=== PATIENT | female | born 1950 ===

== ENCOUNTER 2016-11-06 01:36 | Emergency (ER) | payer MEDICARE, MEDICAID ==
[2016-11-06 01:36] VITALS: PULSE 83
[2016-11-06 01:42] VITALS: BMI 21.7
[2016-11-06] MEDS ORDERED: Morphine 2 mg/ml ISec IVP STA (01:51)
--- NOTE | 2016-11-06 01:52 | ED PDOC ---
Arrival/HPI - General Time Seen by Provider: 11/06/16 01:42 Historian: Patient, Spouse - History of Present Illness Narrative History of Present Illness (Text): 11/06/16 01:48 Heather Chowdary is a 66 year old female, whose past medical history includes CABG, CAD with stents, diabetes, and hypertension, who presents to the Emergency department complaining of intermittent chest pain for the past 2-3 days, worsening tonight. Patient reports associated epigastric pain, cough, nausea, and 2 episodes of non-bloody vomiting. Patient also notes a mild headache. Patient denies any fever, chills, shortness of breath, diarrhea, urinary symptoms, back pain, neck pain, dizziness, vision changes, focal neurological deficits, or any other complaints. PMD: Dr. Alesha Torres Counseling Specialist: Dr. Guevara Time/Duration: < week (2-3 days) Symptom Course: Intermittent, Worsening Activities at Onset: Rest, Light Context: Home Past Medical History - Provider Review Nursing Documentation Reviewed: Yes - Infectious Disease Hx of Infectious Diseases: None - Tetanus Immunization Tetanus Immunization: Unknown - Cardiac Hx Cardiac Disorders: No Hx Pacemaker: No - Pulmonary Hx Respiratory Disorders: No Hx Bronchitis: No (pt denies) Hx Pneumonia: No (pt denies) - Neurological Hx Neurological Disorder: No Hx Paralysis: No - HEENT Hx HEENT Disorder: Yes (reading glasses) Hx Cataracts: Yes (sx r eye 11/2012) - Renal Hx Renal Disorder: No - Endocrine/Metabolic Hx Endocrine Disorders: Yes Hx Diabetes Mellitus Type 1: Yes Hx Diabetes Mellitus Type 2: Yes - Hematological/Oncological Hx Blood Disorders: No Hx Blood Transfusions: No Hx Blood Transfusion Reaction: No - Integumentary Hx Dermatological Disorder: No - Musculoskeletal/Rheumatological Hx Musculoskeletal Disorders: No - Gastrointestinal Hx Gastrointestinal Disorders: No - Genitourinary/Gynecological Hx Genitourinary Disorders: No (URINARY HESITANCY) - Psychiatric Hx Anxiety: Yes Hx Emotional Abuse: No Hx Physical Abuse: No Hx Substance Use: No - Surgical History Hx Cardiac Catheterization: Yes (02/20/14) Hx Coronary Artery Bypass Graft: Yes Hx Coronary Stent: Yes (2007 x2) Hx Open Heart Surgery: Yes - Anesthesia Hx Anesthesia: Yes Hx Anesthesia Reactions: No Hx Malignant Hyperthermia: No - Suicidal Assessment Feels Threatened In Home Enviroment: No Family/Social History - Physician Review Nursing Documentation Reviewed: Yes Family/Social History: Unknown Family HX Smoking Status: Former Smoker Hx Alcohol Use: No Hx Substance Use: No Hx Substance Use Treatment: No Allergies/Home Meds Allergies/Adverse Reactions: Allergies metoclopramide Allergy (Verified 01/24/16 13:53) SHORTNESS OF BREATH zolpidem tartrate [From Ambien] Adverse Reaction (Verified 11/06/16 01:42) anxiety Home Medications: Home Meds Medication Instructions Recorded Confirmed Aspirin [Aspir 81] 81 mg PO QAM 11/25/12 11/06/16 Clopidogrel Bisulfate [Clopidogrel] 75 mg PO QAM 11/25/12 11/06/16 Furosemide [Lasix] 40 mg PO QAM 03/13/15 11/06/16 Potassium Chloride [Klor-Con 10] 10 meq PO QAM 03/13/15 11/06/16 Carvedilol [Coreg] 12.5 mg PO QPM 11/17/15 11/06/16 Digoxin [Digitek] 125 mcg PO DAILY 11/17/15 11/06/16 Enalapril Maleate [Vasotec] 5 mg PO QAM 11/17/15 11/06/16 Glipizide [Glipizide Xl] 10 mg PO BID 11/17/15 11/06/16 Omeprazole [Prilosec] 40 mg PO QAM 11/17/15 11/06/16 Pravastatin Sodium [Pravachol] 40 mg PO QPM 11/17/15 11/06/16 Sitagliptin Phos/Metformin HCl 1 ter PO BID 11/17/15 11/06/16 [Janumet Xr 50-1,000 mg Tablet] Tramadol HCl [Ultram] 50 mg PO BID PRN 11/17/15 11/06/16 Gabapentin [Neurontin] 100 mg PO BID 01/24/16 11/06/16 Repaglinide 1 mg PO DAILY 11/06/16 11/06/16 Review of Systems - Physician Review All systems were reviewed & negative as marked: Yes - Review of Systems Constitutional: Normal. absent: Fevers Eyes: Normal ENT: Normal Respiratory: Cough. absent: SOB Cardiovascular: Chest Pain Gastrointestinal: Abdominal Pain, Nausea, Vomiting. absent: Diarrhea Genitourinary Female: Normal. absent: Dysuria, Frequency, Hematuria, Urine Output Changes Musculoskeletal: Normal. absent: Back Pain, Neck Pain Skin: Normal. absent: Rash Neurological: Headache. absent: Dizziness Endocrine: Normal Hemo/Lymphatic: Normal Psychiatric: Normal Physical Exam Vital Signs Reviewed: Yes Vital Signs Temp Pulse Pulse Resp BP BP Pulse Ox 11/06/16 02:39 97.7 F 11/06/16 02:21 85 17 133/72 99 11/06/16 02:05 87 133/72 11/06/16 01:42 92 H 18 154/94 H 100 Temperature: Afebrile Blood Pressure: Normal Pulse: Regular Respiratory Rate: Normal Appearance: Positive for: Well-Appearing, Non-Toxic, Comfortable Pain Distress: None Mental Status: Positive for: Alert and Oriented X 3 - Systems Exam Head: Present: Atraumatic, Normocephalic Pupils: Present: PERRL Extroacular Muscles: Present: EOMI Conjunctiva: Present: Normal Mouth: Present: Moist Mucous Membranes Neck: Present: Normal Range of Motion Respiratory/Chest: Present: Clear to Auscultation, Good Air Exchange. No: Respiratory Distress, Accessory Muscle Use Cardiovascular: Present: Regular Rate and Rhythm, Normal S1, S2. No: Murmurs Abdomen: Present: Normal Bowel Sounds. No: Tenderness, Distention, Peritoneal Signs Back: Present: Normal Inspection Upper Extremity: Present: Normal Inspection. No: Cyanosis, Edema Lower Extremity: Present: Normal Inspection. No: Edema Neurological: Present: GCS=15, CN II-XII Intact, Speech Normal Skin: Present: Warm, Dry, Normal Color. No: Rashes Psychiatric: Present: Alert, Oriented x 3, Normal Insight, Normal Concentration Medical Decision Making ED Course and Treatment: 11/06/16 01:48 Impression: 66 year old female complaining of chest pain, epigastric pain, nausea, vomiting , and cough. Plan: -- EKG -- Chest X-ray -- Labs, cardiac enzymes, amylase, lipase, VBG -- Urinalysis -- Zofran -- Protonix -- Morphine -- Reassess and disposition Prior Visits: Notes and results from previous visits were reviewed. On 04/11/2016, pt was seen in the Emergency department for chest burning sensation and choking sensation with productive cough and shortness of breath. Pt was d/c home. Progress Notes: Reviewed EKG, NSR at 85 bpm. Septal infarct. Non-specific T wave changes. 11/06/16 02:02 Reviewed radiology, Chest X-ray shows no acute processes. 11/06/16 02:31 CT Abdomen and Pelvis ordered. 11/06/16 03:04 Pt complaining of headache. Tylenol ordered. 11/06/16 03:[address] Alesah Torres, who is aware and agrees with plan. Accepts pt in to his service. Pt will go to Telemetry observation for chest pain. Pt is no acute distress. Discussed results and hospital observation plan with pt , who is aware and verbalizes understanding. 11/06/16 03:[address] Abdomen and Pelvis, shows: 1. Mild cystitis vs underdistention. Correlate with urinalysis. 2. Probable fibroid uterus. 3. Incidental/non-acute findings are described above. - Lab Interpretations Lab Results: 11/06/16 02:05 11/06/16 02:05 Lab Results 11/06/16 02:05: pO2 56 H, VBG pH 7.33, VBG pCO2 51.0, VBG HCO3 26.9, VBG Total CO2 28.5 H, VBG O2 Sat (Calc) 93.2 H, VBG Base Excess 0.4, VBG Potassium 3.9, Sodium 138.0, Chloride 105.0, Glucose 225 H, Lactate 2.8 H, FiO2 21.0, Venous Blood Potassium 3.9 11/06/16 02:05: Sodium 137, Chloride 101, Potassium 3.8, Carbon Dioxide 23, Anion Gap 17, BUN 26 H, Creatinine 1.2, Est GFR ( Amer) 54, Est GFR (Non- Af Amer) 45, Random Glucose 195 H, Calcium 9.2, Total Bilirubin 0.3, AST 25, ALT 22, Alkaline Phosphatase 55, Lactate Dehydrogenase 372, Total Creatine Kinase 81, Troponin I < 0.01 D, Total Protein 7.5, Albumin 4.6, Globulin 2.9, Albumin/Globulin Ratio 1.6, Amylase 147 H, Lipase 269 11/06/16 02:05: PT 10.0, INR 0.93, APTT 26.6 11/06/16 02:05: WBC 6.6, RBC 3.73, Hgb 10.6 L, Hct 32.1 L, MCV 86.1, MCH 28.4, MCHC 33.0, RDW 13.0, Plt Count 219, MPV 9.2, Gran % 43.5 L, Lymph % (Auto) 47.6 H, [place] % (Auto) 4.7, Eos % (Auto) 3.7, Baso % (Auto) 0.5, Gran # 2.86, Lymph # 3.1, [place] # 0.3, Eos # 0.2, Baso # 0.03 I have reviewed the lab results: Yes - RAD Interpretation Narrative RAD Interpretations (Text): CT Abdomen and Pelvis shows: Limitations: Lack of intravenous contrast. Lower thorax: Minimal atelectasis/scarring. Coronary artery calcifications. ABDOMEN: Liver: Few liver calcifications. Gallbladder and bile ducts: No calcified stones. No ductal dilation. Pancreas: Unremarkable. No ductal dilation. Spleen: No splenomegaly. Adrenals: No mass. Kidneys and ureters: No renal calculi. 0.4 cm hyperdense lesion within LEFT kidney, likely proteinaceous/hemorrhagic cyst. No hydronephrosis. Stomach and bowel: No definite mural thickening. No obstruction. Appendix: Normal caliber. No inflammation. PELVIS: Bladder: Borderline bladder wall thickening, 4-5 mm. Incomplete distention, limiting evaluation. No stones. Reproductive: Lobulated uterus with few coarse calcifications. ABDOMEN and PELVIS: Intraperitoneal space: No significant fluid collection. No free air. Bones/joints: Median sternotomy. Scoliosis and degenerative changes of spine. No acute fracture. Soft tissues: Unremarkable. Vasculature: Mild atherosclerotic disease. No aneurysm. Lymph nodes: No pathologically enlarged lymph nodes. IMPRESSION: 1. Mild cystitis vs underdistention. Correlate with urinalysis. 2. Probable fibroid uterus. 3. Incidental/non-acute findings are described above. Radiology Orders: 11/06/16 01:50 CHEST PORTABLE [RAD] Stat 11/06/16 02:31 ABD & PELVIS W/O PO OR IV CONT [CT] Stat [employer] Operator: ED Physician, Radiologist - EKG Interpretation Interpreted by ED Physician: Yes Type: 12 lead EKG - Medication Orders Current Medication Orders: Insulin Human Regular (Humulin R Low) 0 units SC ACHS STEPHEN PRN Reason: Protocol Discontinued Medications Acetaminophen (Tylenol 325mg Tab) 650 mg PO STAT STA Stop: 11/06/16 03:05 Last Admin: 11/06/16 03:49 Dose: 650 mg Morphine Sulfate (Morphine) 2 mg IVP STAT STA Stop: 11/06/16 01:52 Last Admin: 11/06/16 02:07 Dose: Not Given Non-Admin Reason: Patient Refused Ondansetron HCl (Zofran Inj) 4 mg IVP STAT STA Stop: 11/06/16 01:51 Last Admin: 11/06/16 02:06 Dose: 4 mg Pantoprazole Sodium (Protonix Inj) 40 mg IVP ONCE STA Stop: 11/06/16 01:51 Last Admin: 11/06/16 02:07 Dose: 40 mg - Rodolfoibe Statement The provider has reviewed the documentation as recorded by the Osmel Poole All medical record entries made by the Osmel were at my direction and personally dictated by me. I have reviewed the chart and agree that the record accurately reflects my personal performance of the history, physical exam, medical decision making, and the department course for this patient. I have also personally directed, reviewed, and agree with the discharge instructions and disposition. Disposition/Present on Arrival - Present on Arrival Any Indicators Present on Arrival: No History of DVT/PE: No History of Uncontrolled Diabetes: No Urinary Catheter: No History of Decub. Ulcer: No History Surgical Site Infection Following: None - Disposition Have Diagnosis and Disposition been Completed?: Yes Diagnosis: Chest pain Disposition: HOSPITALIZED Disposition Time: 03:10 Condition: FAIR
[2016-11-06 02:13] LABS: ADD MANUAL DIFF? NO
[2016-11-06 02:18] LABS: VENOUS BLOOD GAS BASE EXCESS 0.4 mmol/L (0.0-2.0); VENOUS BLOOD PH 7.33 (7.32-7.43)
[2016-11-06 02:23] LABS: BASO # 0.03 K/mm3 (0.0-2.0); BASO % 0.5 % (0.0-3.0); EOS # 0.2 (0.0-0.7); EOS % 3.7 % (1.5-5.0); GRAN # 2.86 (1.4-6.5); GRAN % 43.5 % (50.0-68.0); HEMATOCRIT 32.1 % (36.0-48.0); LYMPH # 3.1 (1.2-3.4); LYMPH % 47.6 % (22.0-35.0); MEAN CELL VOLUME 86.1 fL (80.0-105.0); MEAN CORPUSCULAR HEMOGLOBIN 28.4 pg (25.0-35.0); MEAN PLATELET VOLUME 9.2 fl (7.0-11.0); MONO # 0.3 (0.1-0.6); MONO % 4.7 % (1.0-6.0); PLATELET COUNT 219 10^3/uL (120.0-450.0); WHITE BLOOD COUNT 6.6 10^3/ul (4.5-11.0)
[2016-11-06 02:29] LABS: INR 0.93 (0.93-1.08); PARTIAL THROMBOPLASTIN TIME 26.6 Seconds (23.7-30.8)
[2016-11-06 02:34] LABS: ALB/GLOB RATIO 1.6 (1.1-1.8); ALKALINE PHOSPHATASE 55 U/L (38-133); ALT/SGPT 22 U/L (7-56); AMYLASE 147 U/L (35-125); AST/SGOT 25 U/L (15-39); BILIRUBIN,TOTAL 0.3 mg/dL (0.2-1.3); BLOOD UREA NITROGEN 26 mg/dL (7-21); CALCIUM 9.2 mg/dL (8.4-10.5); CARBON DIOXIDE 23 mmol/L (21-33); CHLORIDE 101 mmol/L (98-107); GFR AFRICAN-AMERICAN 54; GLUCOSE,RANDOM 195 mg/dL (70-110); LIPASE 269 U/L (23-300); POTASSIUM 3.8 mmol/L (3.6-5.0); SODIUM 137 mmol/L (132-148); TOTAL PROTEIN 7.5 g/dL (5.8-8.3)
[2016-11-06 02:46] LABS: TROPONIN I < 0.01 ng/mL
--- NOTE | 2016-11-06 03:25 | CT ---
EXAM: CT Abdomen and Pelvis Without Intravenous Contrast CLINICAL HISTORY: 66 years old, female; Pain; Abdominal pain; Generalized; Additional info: Abd pain TECHNIQUE: Axial computed tomography images of the abdomen and pelvis without intravenous contrast. This CT exam was performed using one or more of the following dose reduction techniques: automated exposure control, adjustment of the mA and/or kV according to patient size, and/or use of iterative reconstruction technique. Coronal and sagittal reformatted images were created and reviewed. COMPARISON: No relevant prior studies available. FINDINGS: Limitations: Lack of intravenous contrast. Lower thorax: Minimal atelectasis/scarring. Coronary artery calcifications. ABDOMEN: Liver: Few liver calcifications. Gallbladder and bile ducts: No calcified stones. No ductal dilation. Pancreas: Unremarkable. No ductal dilation. Spleen: No splenomegaly. Adrenals: No mass. Kidneys and ureters: No renal calculi. 0.4 cm hyperdense lesion within LEFT kidney, likely proteinaceous/hemorrhagic cyst. No hydronephrosis. Stomach and bowel: No definite mural thickening. No obstruction. Appendix: Normal caliber. No inflammation. PELVIS: Bladder: Borderline bladder wall thickening, 4-5 mm. Incomplete distention, limiting evaluation. No stones. Reproductive: Lobulated uterus with few coarse calcifications. ABDOMEN and PELVIS: Intraperitoneal space: No significant fluid collection. No free air. Bones/joints: Median sternotomy. Scoliosis and degenerative changes of spine. No acute fracture. Soft tissues: Unremarkable. Vasculature: Mild atherosclerotic disease. No aneurysm. Lymph nodes: No pathologically enlarged lymph nodes. IMPRESSION: 1. Mild cystitis vs underdistention. Correlate with urinalysis. 2. Probable fibroid uterus. 3. Incidental/non-acute findings are described above.
[2016-11-06 06:41] VITALS: O2SAT 98
[2016-11-06 07:30] VITALS: RESP 18; TEMP 98.8
[2016-11-06] MEDS ORDERED: Insulin Reg-LOW-Coverage SC SCH (07:30)
[2016-11-06 09:13] VITALS: BP 126/84; PULSE 82
--- NOTE | 2016-11-06 09:47 | HP ---
HISTORY OF PRESENT ILLNESS: The patient is a 66-year-old woman with a past medical history of CAD, s anabellus post CABG, hypertension, hyperlipidemia and type 2 diabetes mellitus, who presented to [facility] Emergency Department with a 3-day history of epigastric abdominal pain and substernal chest pain. The patient reports that she was in her usual state of health until approximately 3 days ago when the symptoms developed. She states that, initially, they developed as a dull epigastric ab dominal discomfort and subsequently reported radiation to be substernal region. The patient states t hat her symptoms are worse when supine and denies dyspnea, orthopnea, claudication or lower extremity edema associated with her symptoms. Of note, the patient has been prescribed omeprazole for GERD sy mptoms, but states that she has not been taking this medication for quite some time. This morning, t he patient states she feels well and denies any active chest discomfort. PAST MEDICAL HISTORY: As per HPI, also history of ischemic cardiomyopathy with an ejection fraction of 35%. PAST SURGICAL HISTORY: As per HPI. ALLERGIES: AMBIEN, METOCLOPRAMIDE. MEDICATIONS: Plavix 75 mg p.o. daily, Pravachol 40 mg p.o. daily, Coreg 12.5 mg p.o. b.i.d., enalapr il 10 mg p.o. daily, Lasix 40 mg p.o. daily, donepezil 5 mg p.o. daily, glipizide 10 mg p.o. b.i.d., digoxin 0.125 mg p.o. daily, Janumet mg p.o. b.i.d., gabapentin 300 mg p.o. b.i.d., aspirin 8 1 mg p.o. daily and omeprazole 40 mg p.o. daily. FAMILY HISTORY: Noncontributory. SOCIAL HISTORY: The patient reports a former 19-coxz-hijs smoking history, but denies illicit drug a buse or alcohol use. REVIEW OF SYSTEMS: A 14 point review of systems is negative except as per HPI. PHYSICAL EXAMINATION: VITAL SIGNS: Temperature 98.8, pulse 80, blood pressure 120/64, respiratory rate 18, oxygen saturati on 98% on room air. GENERAL: No apparent distress. HEENT: PERRL. EOMI. No scleral icterus, no conjunctival pallor. NECK: Supple with full range of motion, no JVD. LUNGS: Clear to auscultation. CARDIOVASCULAR: Regular rate and rhythm. Normal S1 and S2. CHEST: Healed midline sternotomy scar. ABDOMEN: Normoactive bowel sounds. Tenderness to palpation to the epigastrium with voluntary guardi ng. No rigidity, no tympany. EXTREMITIES: No edema. NEUROLOGIC: Awake, alert and oriented x 3. No focal motor deficits. LABORATORY DATA: CBC reviewed and unremarkable. CMP reviewed and largely unremarkable. Troponin le ss than 0.01. IMAGING STUDIES: X-ray demonstrates no acute pathology. CT of the abdomen and pelvis without contra st demonstrates no acute pathology. DIAGNOSTIC STUDIES: EKG is pending. ASSESSMENT: The patient is a 66-year-old woman with multiple medical comorbidities, including cespedes ry artery disease, status post coronary artery bypass graft, ischemic cardiomyopathy (with ejection f raction of 35%), hypertension, hyperlipidemia and type 2 diabetes mellitus and gastroesophageal reflu x disease, who presented to [facility] with a 3-day history of epigastric abdominal disco mfort with subsequent radiation to the substernal region. PLAN: 1. Atypical chest pain, rule out ACS, Low suspicion for cardiac etiology of patient's discomfort. Initial troponin is negative. We will obtain a repeat troponin and EKG. Dr. Guevara of cardiology has been consulted for further evaluation and recommendations. 2. GERD. The patient has a longstanding history of GERD, but states that she has not been taking he r omeprazole as directed nor has she been adhering to a diet as directed and she was advised that the etiology of her symptoms is likely related to gastritis. We will resume Protonix 40 mg p.o. daily w christoph in the hospital and the patient was advised to resume omeprazole 40 mg p.o. daily upon discharge . 3. CAD, status post CABG. As above, Dr. Guevara of cardiology has been consulted for further evaluati on and recommendations. We will resume home medications. 4. Type 2 diabetes mellitus with diabetic neuropathy. We will resume home medications. 5. Hypertension. Blood pressure controlled. Continue with current medications. 6. Hyperlipidemia. Continue with current medications. 7. Prophylaxis. The patient has been restarted on Protonix; thus, GI prophylaxis not indicated. DV T prophylaxis not indicated as patient is ambulatory. CODE STATUS: Full code. Taran Torres MD cc: [phone] TT: 11/06/2016 09:46:14 [facility] # [id number] tn
--- NOTE | 2016-11-06 10:11 | RAD ---
HISTORY: Shortness of breath COMPARISON: 04/11/2016. FINDINGS: LUNGS: The lungs are clear. PLEURA: No significant pleural effusion identified, no pneumothorax apparent. CARDIOVASCULAR: The heart is normal in size. Status post median sternotomy. OSSEOUS STRUCTURES: No significant abnormalities. VISUALIZED UPPER ABDOMEN: Normal. OTHER FINDINGS: None. IMPRESSION: No active pulmonary disease.
[2016-11-06 11:00] LABS: VENOUS BLOOD GAS BASE EXCESS 3.7 mmol/L (0.0-2.0); VENOUS BLOOD PH 7.36 (7.32-7.43)
--- NOTE | 2016-11-06 12:35 | CON ---
DATE: 11/06/2016 SERVICE: Cardiology. REASON FOR CONSULTATION: Epigastric pain, vomiting, nauseous, radiating to the chest, cardiac evalua tion, history of CABG, history of PTCA. BRIEF CLINICAL HISTORY: This is a 66-year-old female with a past medical history of CAD, status post CABG, status post PTCA, history of cardiomyopathy, ejection fraction decreased, came in with complai nt of epigastric pain radiating to the chest and mild tenderness, history of vomiting. Denies any ch est pain, denies any dyspnea on exertion. No chest pain on exertion. PAST MEDICAL HISTORY: Significant for coronary artery disease, status post CABG in 2006. The patien t has a 4-vessel CABG, CARPENTER to LAD, sequential to diagonal, sequential to OM1 and RCA. Last catheter ization dated 02/20/2014, when the patient was admitted with acute coronary syndrome, was then found to be triple vessel disease, patent CARPENTER to LAD, patent saphenous graft to OM1, patent saphenous robby t to the diagonal 1, mid diagonal 70% stenosis, PCI of right coronary artery was not done. No PCI wa s done. Medical treatment recommended. At that time, the cardiac catheterization revealed ejection fraction 35%, EDP was in the range of 20. Later, the MUGA scan was done on 01/24/2015 that shows eje ction fraction 38%. The EF by cath, ejection fraction 35%. The patient is scheduled for another MUG A in 6 months. Previous cardiac workup as follows: The patient's most recent MUGA scan done 05/27/2016 that shows e jection fraction 41%. Prior to that, the patient had a MUGA scan on 01/24/2015, ejection fraction 38 %, history of cardiac catheterization on 02/20/2014, triple vessel disease, patent CARPENTER to LAD, paten t saphenous graft to obtuse marginal 1, patent saphenous graft to diagonal 1, occluded SVG to RCA, bu t RPDA was well collateralized from circumflex, so no PTCA of RCA was done. Medical treatment was re commended. EF by cath at that time was ejection fraction 35%, EDP was 18-20 and the patient started digoxin, LANA, Coreg and statin and diuretics. Plan is to follow up closely with EF by MUGA scan to a ssess the need for defibrillator. The patient had a MUGA scan following this in 01/2015 that was 38% . Most recently, in May, patient had a MUGA scan this year that shows ejection fraction 41%. SOCIAL HISTORY: Denies any smoking. Denies any history of alcohol abuse. CURRENT MEDICATIONS: The patient is taking tramadol, omeprazole, glipizide, Lasix, enalapril, digoxi n, Plavix, carvedilol. REVIEW OF SYSTEMS: As per HPI. PHYSICAL EXAMINATION: VITAL SIGNS: Temperature afebrile, heart rate 72, blood pressure 126/84. HEENT: PERRLA. Extraocular muscles intact. NECK: Supple. No carotid bruits. No thyromegaly. CHEST: Clear to auscultation. HEART: S1, S2 regular. ABDOMEN: Soft. EXTREMITIES: Clubbing and cyanosis negative. LABORATORY DATA: Blood workup as follows: WBC 6.6, hemoglobin 10.6, hematocrit 32.1, platelet count 219. Chemistry shows sodium 137, potassium 3.8, chloride 101, carbon dioxide 23, anion gap of 17, B UN 26, creatinine 1.2. Troponin 0.01, negative. EKG shows normal sinus, incomplete left bundle branch block. IMPRESSION: Atypical chest pain, noncardiac, doubt it is cardiac, history of coronary artery disease , history of coronary artery bypass graft, history of cardiac catheterization, last on 02/20/2014 peng t shows triple-vessel disease, patent left internal mammary artery to left anterior descending, paten t saphenous graft to obtuse marginal 1 and diagonal 1, occluded graft to the right coronary artery, b ut no intervention was done as right posterior descending artery is well collateralized from circumfl ex, ejection fraction 35%. Repeat MUGA scan ejection fraction 38% dated 01/24/2015. Most recent MUG A scan 05/2016, 41%. Medical treatment recommended. Epigastric pain, most likely the cardiomyopathy . RECOMMENDATION: Also patient lost prescription for proton pump inhibitor, start proton pump inhibito r, add a second set of troponin. If second set of troponin remains negative, we will discharge the p atient to follow up as outpatient. We will follow. Repeat a MUGA scan in 6 months. Thank you, Dr. Taran Torres, for the opportunity in taking care of this patient. Gt Guevara MD cc:Taran Torres MD [id number] TT: 11/06/2016 12:34:57 Confirmation # [id number] Dictation # [id number] rn
--- NOTE | 2016-11-06 15:34 | DS ---
ADMITTING DIAGNOSIS: Chest pain, rule out acute coronary syndrome. DISCHARGE DIAGNOSIS: Acute gastritis. SECONDARY DIAGNOSES: Coronary artery disease status post coronary artery bypass graft, hypertension, hyperlipidemia, type 2 diabetes mellitus, and ischemic cardiomyopathy. CONSULTATIONS: Dr. Guevara (cardiology). IMAGING STUDIES: 1. Chest x-ray, which demonstrated no acute pathology. 2. CT of the abdomen and pelvis without contrast, which demonstrated no acute pathology. HISTORY OF PRESENT ILLNESS: The patient is a 66-year-old woman with past medical history of CAD status post CABG, hypertension, hyperlipidemia, type 2 diabetes mellitus and GERD, who presented to [facility] Emergency Department with a 3-day history of epigastric abdominal pain and substernal chest pain. The patient reports that she was in her usual state of health until approximately 3 days ago when she developed the aforementioned symptoms. She states that initially she felt an epigastric abdominal discomfort which was dull in nature and subsequently reported radiation of her discomfort to the substernal region. The symptoms were reportedly worse when supine and she denied dyspnea, orthopnea, claudication, lower extremity edema or cough associated with her symptoms. Of note, the patient had been prescribed omeprazole for her GERD symptoms in the past, but has not been taking them for quite some time. This morning, she states she feels well and denies any active chest discomfort. HOSPITAL COURSE: While in the Emergency Department, the patient had an EKG and a set of cardiac enzymes which were unremarkable. She was evaluated by Dr. Guevara of cardiology and it was not felt that the etiology of her chest discomfort was cardiac in nature, but rather secondary to an acute gastritis. The patient was advised that a second set of cardiac enzymes and EKGs would be obtained and if this was negative, she may safely be discharged with outpatient followup to which the patient was amenable. The patient also received IV Protonix with some improvement in her presenting symptoms. Eight hours later when the second cardiac enzyme and EKG resulted as unremarkable, the patient was deemed stable for discharge to home. CONDITION: Good, improved. DISPOSITION: To home. DISCHARGE MEDICATIONS: Plavix 75 mg p.o daily, Pravachol 40 mg p.o. daily, Coreg 12.5 mg p.o. b.i.d., enalapril 10 mg p.o. daily, Lasix 40 mg p.o. daily, donepezil 5 mg p.o. daily, glipizide 10 mg p.o. b.i.d., digoxin 0.125 mg p.o. daily, Janumet mg p.o. b.i.d., gabapentin 300 mg p.o. b.i.d., aspirin 81 mg p.o. daily and omeprazole 40 mg p.o. daily. DISCHARGE INSTRUCTIONS: The patient was advised to adhere to a diet as prescribed, so as to minimize recurrence of GERD-like symptoms. The patient was also advised that if she has any recurrence of her symptoms to present to her PMD or to the nearest Emergency Department immediately. FOLLOWUP: The patient to follow up with her PMD within 1 week of discharge. The patient to follow up with Dr. Guevara as scheduled. Taran Torres MD cc: [phone] TT: 11/06/2016 15:33:32 cn MTDD
[2016-11-06] MEDS ORDERED: Pantoprazole 40 mg EC Tab PO SCH (16:00)
--- NOTE | 2016-11-06 23:41 | CARD ---
APPROVED REPORT EKG Measurement Heart [id number] <Conclusion> Normal sinus rhythm Nonspecific intraventricular block Abnormal ECG
--- NOTE | 2016-11-06 23:44 | CARD ---
APPROVED REPORT EKG Measurement Heart [id number] [place] [id number] <Conclusion> Normal sinus rhythm Incomplete left bundle branch block T wave abnormality, consider inferior ischemia Abnormal ECG
--- NOTE | 2016-11-06 23:52 | CARD ---
APPROVED REPORT EKG Measurement Heart [id number] [place] [id number] <Conclusion> Normal sinus rhythm Septal infarct, age undetermined T wave abnormality, consider inferior ischemia Abnormal ECG
== END 2016-11-06 12:25 | disposition home or self-care (01) ==
LOC: ED 01:36 → UNDOADMOB 03:03 → ERH 03:03
DX: R07.9 Chest pain, unspecified (principal); F17.210 Nicotine dependence, cigarettes, uncomplicated; E11.9 Type 2 diabetes mellitus without complications; I10 Essential (primary) hypertension; I25.10 Atherosclerotic heart disease of native coronary artery without angina pectoris; Z95.1 Presence of aortocoronary bypass graft
CPT/HCPCS: 71010; 74176; 80053; 82150; 82550; 82803; 82948; 83615; 83690; 84484; 85025; 85610; 85730; 93005; 96374; 96375; 99285; C9113; J2405

== ENCOUNTER 2017-01-21 20:34 | Emergency (ER) | payer MEDICARE, MEDICAID ==
[2017-01-21 20:35] VITALS: PULSE 83; BMI 21.7
[2017-01-21 21:05] VITALS: BP 136/68; PULSE 82; RESP 16; TEMP 97.7; O2SAT 98
[2017-01-21] MEDS ORDERED: Oxycodone/Acetaminophen 5/325 mg Tab PO STA (21:31)
--- NOTE | 2017-01-21 21:34 | ED PDOC ---
Arrival/HPI - General Chief Complaint: Abnormal Skin Integrity Time Seen by Provider: 01/21/17 20:43 Historian: Patient - History of Present Illness Narrative History of Present Illness (Text): 01/21/17 23:45 66 yo F w/ pmh of DM, presents with a red painful and itchy rash to the L side of her mid back extending to the L side of her anterior ribs x 5 days, reports that she saw her pmd andwas dx with shingles and was given Rx for valcyclovir, however the symptoms are still present. She is taking tramadol for her pain with no relief prompting ED visit. Adds tactile fever and chills. Denies any CP , SOB, dyspnea, abdominal pain, N/V, urinary symptoms, trauma, injury. Has no other complaints. PMD Brian Past Medical History - Provider Review Nursing Documentation Reviewed: Yes - Infectious Disease Hx of Infectious Diseases: None - Tetanus Immunization Tetanus Immunization: Unknown - Cardiac Hx NH: Yes - Pulmonary Hx Respiratory Disorders: No Hx Bronchitis: No (pt denies) Hx Pneumonia: No (pt denies) - Neurological Hx Neurological Disorder: No Hx Paralysis: No - HEENT Hx HEENT Disorder: Yes (reading glasses) Hx Cataracts: Yes (sx r eye 11/2012) - Renal Hx Renal Disorder: No - Endocrine/Metabolic Hx Endocrine Disorders: Yes Hx Diabetes Mellitus Type 2: Yes - Hematological/Oncological Hx Blood Disorders: No Hx Blood Transfusions: No Hx Blood Transfusion Reaction: No - Integumentary Hx Dermatological Disorder: No - Musculoskeletal/Rheumatological Hx Musculoskeletal Disorders: No - Gastrointestinal Hx Gastrointestinal Disorders: No - Genitourinary/Gynecological Hx Genitourinary Disorders: No - Psychiatric Hx Anxiety: Yes Hx Emotional Abuse: No Hx Physical Abuse: No Hx Substance Use: No - Surgical History Hx Cardiac Catheterization: Yes (02/20/14) Hx Coronary Artery Bypass Graft: Yes Hx Coronary Stent: Yes (2007 x2) Hx Open Heart Surgery: Yes - Anesthesia Hx Anesthesia: Yes - Suicidal Assessment Feels Threatened In Home Enviroment: No Family/Social History - Physician Review Nursing Documentation Reviewed: Yes Family/Social History: No Known Family HX Smoking Status: Former Smoker Hx Alcohol Use: No Hx Substance Use: No Hx Substance Use Treatment: No Allergies/Home Meds Allergies/Adverse Reactions: Allergies metoclopramide Allergy (Verified 01/24/16 13:53) SHORTNESS OF BREATH zolpidem tartrate [From Ambien] Adverse Reaction (Verified 11/06/16 01:42) anxiety Home Medications: Home Meds Medication Instructions Recorded Confirmed Aspirin [Aspir 81] 81 mg PO QAM 11/25/12 01/21/17 Clopidogrel Bisulfate [Clopidogrel] 75 mg PO QAM 11/25/12 01/21/17 Furosemide [Lasix] 40 mg PO QAM 03/13/15 01/21/17 Potassium Chloride [Klor-Con 10] 10 meq PO QAM 03/13/15 01/21/17 Carvedilol [Coreg] 12.5 mg PO QPM 11/17/15 01/21/17 Digoxin [Digitek] 125 mcg PO DAILY 11/17/15 01/21/17 Enalapril Maleate [Vasotec] 5 mg PO QAM 11/17/15 01/21/17 Glipizide [Glipizide Xl] 10 mg PO BID 11/17/15 01/21/17 Omeprazole [Prilosec] 40 mg PO QAM 11/17/15 01/21/17 Pravastatin Sodium [Pravachol] 40 mg PO QPM 11/17/15 01/21/17 Sitagliptin Phos/Metformin HCl 1 ter PO BID 11/17/15 01/21/17 [Janumet Xr 50-1,000 mg Tablet] Tramadol HCl [Ultram] 50 mg PO BID PRN 11/17/15 01/21/17 Gabapentin [Neurontin] 100 mg PO BID 01/24/16 01/21/17 Repaglinide 1 mg PO DAILY 11/06/16 01/21/17 Valacyclovir HCl [Valtrex] 1 tab PO TID 01/21/17 01/21/17 Review of Systems - Review of Systems Constitutional: Normal. absent: Fatigue, Weight Change, Fevers Respiratory: Normal. absent: SOB, Cough, Sputum Cardiovascular: Normal. absent: Chest Pain, Palpitations Musculoskeletal: Normal. absent: Arthralgias, Back Pain, Neck Pain Skin: Normal, Rash. absent: Pruritis, Skin Lesions Physical Exam - Physical Exam Narrative Physical Exam (Text): 01/21/17 23:48 GENERAL APPEARANCE: Patient is awake, alert, oriented x 3, in mild painful distress. SKIN: Warm, dry; (-) cyanosis, (+) erythematous vesicular rash to the L mid back and L anterior and lateral ribs. EYES: (-) conjunctival pallor. ENMT: Mucous membranes moist. NECK: (-) tenderness, (-) stiffness, (-) lymphadenopathy, (-) JVD. CHEST AND RESPIRATORY: (-) rash, (-) chest wall tenderness. Lungs: (-) rales , (-) rhonchi, (-) wheezes, (-) rub; breath sounds equal bilaterally. HEART AND CARDIOVASCULAR: (-) irregularity; (-) murmur, (-) gallop, (-) rub. ABDOMEN AND GI: Soft; (-) distention, (-) tenderness, (-) palpable pulsatile mass. EXTREMITIES: (-) deformity; (-) edema, (-) calf tenderness. (+) distal pulses. NEURO AND PSYCH: Mental status as above. Cranial nerves grossly intact; strength symmetric. Vital Signs Temp Pulse Resp BP Pulse Ox 01/21/17 20:40 97.7 F 82 16 136/68 98 Medical Decision Making ED Course and Treatment: 01/21/17 23:49 66 yo F w/ pmh of DM, presents with a red painful and itchy rash to the L side of her mid back extending to the L side of her anterior ribs x 5 days. Patient medicated with percocet po and benadryl po. Reinforced of the the dx of shingles. Advised to continue valcyclovir as prescribed by PMD. Given Rx for zyrtec and tylenol # 3 for her symptoms. Otherwise advised to f/u with pmd in 2 days for re-evaluation. Patient verbalize understanding of dx and instructions. - Medication Orders Current Medication Orders: Discontinued Medications Diphenhydramine HCl (Benadryl) 25 mg PO STAT STA Stop: 01/21/17 21:32 Last Admin: 01/21/17 21:46 Dose: 25 mg Oxycodone/Acetaminophen (Percocet 5/325 Mg Tab) 1 tab PO STAT STA Stop: 01/21/17 21:32 Last Admin: 01/21/17 21:46 Dose: 1 tab - PA / LAVATORY ATTENDANT / Resident Statement MD/DO has reviewed & agrees with the documentation as recorded. Disposition/Present on Arrival - Present on Arrival Any Indicators Present on Arrival: No History of DVT/PE: No History of Uncontrolled Diabetes: No Urinary Catheter: No History of Decub. Ulcer: No History Surgical Site Infection Following: None - Disposition Have Diagnosis and Disposition been Completed?: Yes Diagnosis: Zoster Disposition: HOME/ ROUTINE Disposition Time: 21:32 Patient Plan: Discharge Condition: STABLE Discharge Instructions (ExitCare): Shingles (ED) Print Language: CITIZEN OF [place] Additional Instructions: Thank you for letting us take care of you today. You were treated for herpes zoster. The emergency medical care you received today was directed at your acute symptoms. If you were prescribed any medication, please fill it and take as directed. Continue taking medication which was prescribed by your doctor. It may take several days for your symptoms to resolve. Return to the Emergency Department if your symptoms worsen, do not improve, or if you have any other problems. Please contact your doctor in 2 days for re-evaluation and follow up. Bring any paperwork you were given at discharge with you along with any medications you are taking to your follow up visit. Our treatment cannot replace ongoing medical care by a primary care provider (PCP) outside of the emergency department. Thank you for allowing the [email or web address] team to be part of your care today. Prescriptions: Acetaminophen with Codeine [Tylenol with Codeine #3 Tablet] 1 each PO TID #12 tablet Cetirizine HCl [Zyrtec] 10 mg PO DAILY #30 capsule Referrals: Brian SUAREZ,Taran Kim MD [Primary Care Provider] - Follow up with primary Forms: Tang Song (Latvian)
== END 2017-01-21 21:53 | disposition home or self-care (01) ==
LOC: ED 20:34
DX: B02.9 Zoster without complications (principal)

== ENCOUNTER 2017-04-22 01:49 | Emergency (ER) | payer OTHER, MEDICAID ==
[2017-04-22 01:49] VITALS: PULSE 83; BMI 21.7
[2017-04-22 02:13] VITALS: TEMP 98.1
--- NOTE | 2017-04-22 02:47 | ED PDOC ---
Arrival/HPI <Wes Chaparro - Last Filed: 04/22/17 03:35> - General Historian: Patient, Family - History of Present Illness Time/Duration: 24 hours Symptom Onset: Sudden Symptom Course: Intermittent Activities at Onset: Rest, Light Context: Home <Asad Richardson - Last Filed: 04/22/17 05:35> - General Chief Complaint: Abdominal Pain Time Seen by Provider: 04/22/17 01:55 - History of Present Illness Narrative History of Present Illness (Text): 04/22/17 02:36 Mrs. Chowdary is a 67 year old female with a past medical history significant for DM2, HTN, HLD, CABG, and CAD w/stents who presents to the [facility] ED with a chief complaint of abdominal pain and three episodes of vomiting since this morning. Patient reports that she awoke this morning with nausea and since that time has had three episodes of vomiting that she describes as small amounts of white frothy phlegm. She reports that she hasn't been able to tolerate PO intake of food since the onset but has been able to tolerate liquids. She denies fever, chills, headache, changes in her vision, chest pain, palpitations , SOB, cough, wheezing, hematemesis, hematochezia, diarrhea, constipation, burning/pain with urination, rashes, joint pain, or any numbness/tingling/ weakness of any extremity. (Asad Richardson) Past Medical History - Provider Review Nursing Documentation Reviewed: Yes - Travel History Have you recently traveled outside [place] w/in the past 3 mons?: No - Past History Past History: No Previous - Infectious Disease Hx of Infectious Diseases: None - Tetanus Immunization Tetanus Immunization: Unknown - Cardiac Hx RI: Yes - Pulmonary Hx Respiratory Disorders: No Hx Bronchitis: No (pt denies) Hx Pneumonia: No (pt denies) - Neurological Hx Neurological Disorder: No Hx Paralysis: No - HEENT Hx HEENT Disorder: Yes (reading glasses) Hx Cataracts: Yes (sx r eye 11/2012) - Renal Hx Renal Disorder: No - Endocrine/Metabolic Hx Endocrine Disorders: Yes Hx Diabetes Mellitus Type 2: Yes - Hematological/Oncological Hx Blood Disorders: No Hx Blood Transfusions: No Hx Blood Transfusion Reaction: No - Integumentary Hx Dermatological Disorder: No - Musculoskeletal/Rheumatological Hx Musculoskeletal Disorders: No - Gastrointestinal Hx Gastrointestinal Disorders: No - Genitourinary/Gynecological Hx Genitourinary Disorders: No - Psychiatric Hx Anxiety: Yes Hx Emotional Abuse: No Hx Physical Abuse: No Hx Substance Use: No - Surgical History Hx Cardiac Catheterization: Yes (02/20/14) Hx Coronary Artery Bypass Graft: Yes Hx Coronary Stent: Yes (2007 x2) Hx Open Heart Surgery: Yes - Anesthesia Hx Anesthesia: Yes - Suicidal Assessment Feels Threatened In Home Enviroment: No <Asad Richardson - Last Filed: 04/22/17 05:35> Family/Social History - Physician Review Nursing Documentation Reviewed: Yes Family/Social History: No Known Family HX Smoking Status: Former Smoker Hx Alcohol Use: No Hx Substance Use: No Hx Substance Use Treatment: No <Asad Richardson - Last Filed: 04/22/17 05:35> Allergies/Home Meds <Wes Chaparro - Last Filed: 04/22/17 03:35> <Asad Richardson - Last Filed: 04/22/17 05:35> Allergies/Adverse Reactions: Allergies metoclopramide Allergy (Verified 01/24/16 13:53) SHORTNESS OF BREATH zolpidem tartrate [From Ambien] Adverse Reaction (Verified 11/06/16 01:42) anxiety Home Medications: Home Meds Medication Instructions Recorded Confirmed Aspirin [Aspir 81] 81 mg PO QAM 11/25/12 01/21/17 Clopidogrel Bisulfate [Clopidogrel] 75 mg PO QAM 11/25/12 01/21/17 Furosemide [Lasix] 40 mg PO QAM 03/13/15 01/21/17 Potassium Chloride [Klor-Con 10] 10 meq PO QAM 03/13/15 01/21/17 Carvedilol [Coreg] 12.5 mg PO QPM 11/17/15 01/21/17 Digoxin [Digitek] 125 mcg PO DAILY 11/17/15 01/21/17 Enalapril Maleate [Vasotec] 5 mg PO QAM 11/17/15 01/21/17 Glipizide [Glipizide Xl] 10 mg PO BID 11/17/15 01/21/17 Omeprazole [Prilosec] 40 mg PO QAM 11/17/15 01/21/17 Pravastatin Sodium [Pravachol] 40 mg PO QPM 11/17/15 01/21/17 Sitagliptin Phos/Metformin HCl 1 ter PO BID 11/17/15 01/21/17 [Janumet Xr 50-1,000 mg Tablet] Tramadol HCl [Ultram] 50 mg PO BID PRN 11/17/15 01/21/17 Gabapentin [Neurontin] 100 mg PO BID 01/24/16 01/21/17 Repaglinide 1 mg PO DAILY 11/06/16 01/21/17 Valacyclovir HCl [Valtrex] 1 tab PO TID 01/21/17 01/21/17 Review of Systems - Physician Review All systems were reviewed & negative as marked: Yes - Review of Systems Constitutional: Normal. absent: Fevers, Night Sweats Eyes: Normal. absent: Vision Changes ENT: Normal Respiratory: Normal. absent: SOB, Cough Cardiovascular: Normal. absent: Chest Pain, Palpitations Gastrointestinal: Abdominal Pain, Nausea, Vomiting, Food Intolerance. absent: Normal, Constipation, Diarrhea, Hematochezia, Hematemesis Genitourinary Female: Normal. absent: Dysuria, Frequency Musculoskeletal: Normal. absent: Arthralgias, Back Pain, Neck Pain Skin: Normal. absent: Rash Neurological: Normal. absent: Headache Endocrine: Normal Hemo/Lymphatic: Normal Psychiatric: Normal <Asad Richardson - Last Filed: 04/22/17 05:35> Physical Exam Vital Signs Reviewed: Yes Temperature: Afebrile Blood Pressure: Hypertensive Pulse: Regular Respiratory Rate: Normal Appearance: Positive for: Well-Appearing, Non-Toxic, Comfortable Pain Distress: None Mental Status: Positive for: Alert and Oriented X 3 Finger Stick Blood Glucose: 213 - Systems Exam Head: Present: Atraumatic, Normocephalic Pupils: Present: PERRL Extroacular Muscles: Present: EOMI Conjunctiva: Present: Normal Mouth: Present: Moist Mucous Membranes Neck: Present: Normal Range of Motion Respiratory/Chest: Present: Clear to Auscultation, Good Air Exchange. No: Respiratory Distress, Accessory Muscle Use, Wheezes, Decreased Breath Sounds, Rales, Retracting, Rhonchi, Tachypneic, Tender to Palpation Cardiovascular: Present: Regular Rate and Rhythm, Normal S1, S2, Peripheal Pulses Present. No: Murmurs, Irregular Rhythm, Tachycardic, Bradycardic Abdomen: Present: Tenderness (TTP diffusely but noted to have more tenderness in RLQ), Normal Bowel Sounds. No: Distention, Peritoneal Signs, Rebound, Guarding, Rovsing's Sign Present, Hernias, Scars Back: Present: Normal Inspection. No: CVA Tenderness, Midline Tenderness, Paraspinal Tenderness Upper Extremity: Present: Normal Inspection. No: Cyanosis, Edema Lower Extremity: Present: Normal Inspection. No: Edema Neurological: Present: GCS=15, CN II-XII Intact, Speech Normal Skin: Present: Warm, Dry, Normal Color. No: Rashes Lymphatic: No: Cervical Adenopathy Psychiatric: Present: Alert, Oriented x 3, Normal Insight, Normal Concentration <Asad Richardson - Last Filed: 04/22/17 05:35> Vital Signs Temp Pulse Resp BP Pulse Ox 04/22/17 04:19 85 16 157/78 H 98 04/22/17 02:01 98.1 F 88 18 171/88 H 99 Medical Decision Making - Lab Interpretations I have reviewed the lab results: Yes - RAD Interpretation Pre School Teacher: Radiologist - EKG Interpretation Interpreted by ED Physician: Yes Type: 12 lead EKG <Wes Chaparro - Last Filed: 04/22/17 03:35> - Lab Interpretations I have reviewed the lab results: Yes - RAD Interpretation Pre School Teacher: Radiologist - EKG Interpretation Interpreted by ED Physician: Yes Type: 12 lead EKG <Asad Richardson - Last Filed: 04/22/17 05:35> ED Course and Treatment: Impression: Pt seen and evaluated with medical sales representative. Aware and agree with HPI, clinical findings, plan, and management. Pt, whos past medical history includes diabetes , hypertension, hyperlipidemia, CABG, and CAD with stents, presented for abdominal pain, nausea, and vomiting. Plan: -- CT Abdomen and Pelvis w/o contrast -- Labs, lipase -- Urinalysis -- Zofran -- Protonix -- Reassess and disposition (Wes Chaparro) 04/22/17 02:49 Impression: 67 year old female with a past medical history significant for DM2, HTN, HLD, CABG, and CAD w/stents who presents to the [facility] ED with a chief complaint of abdominal pain and three episodes of vomiting since this morning Plan: -CBC, CMP, UA, Lipase -EKG -CT Abdomen/Pelvis w/o contrast -IV Zofran and Protonix -Reassess and disposition Prior Visits: Patient seen and evaluated for zoster in 04/03 Patient seen and evaluated for chest pain in 02/01 (Asad Richardson) - Lab Interpretations Lab Results: 04/22/17 02:29 04/22/17 03:00 Lab Results 04/22/17 03:15: Urine Color Yellow, Urine Appearance Clear, Urine pH 7.0, Ur Specific [place] 1.010, Urine Protein Negative, Urine Glucose (UA) Negative, Urine Ketones Negative, Urine Blood Negative, Urine Nitrate Negative, Urine Bilirubin Negative, Urine Urobilinogen 0.2, Ur Leukocyte Esterase Negative 04/22/17 03:00: Sodium 139, Potassium 4.8, Chloride 100, Carbon Dioxide 28, Anion Gap 16, BUN 19, Creatinine 0.9, Est GFR ( Amer) > 60, Est GFR (Non- Af Amer) > 60, Random Glucose 203 H, Calcium 10.2, Total Bilirubin 0.5, AST 30, ALT 22, Alkaline Phosphatase 59, Total Protein 8.1, Albumin 4.7, Globulin 3.4, Albumin/Globulin Ratio 1.4, Lipase 175 04/22/17 02:29: WBC 10.0 D, RBC 4.00, Hgb 11.6 L, Hct 34.8 L, MCV 87.0, MCH 29.0, MCHC 33.3, RDW 13.1, Plt Count 291, MPV 9.3, Gran % 64.6, Lymph % (Auto) 27.5, [place] % (Auto) 6.3 H, Eos % (Auto) 1.3 L, Baso % (Auto) 0.3, Gran # 6.45, Lymph # 2.7, [place] # 0.6, Eos # 0.1, Baso # 0.03 04/22/17 02:15: POC Glucose (mg/dL) 213 H - RAD Interpretation Radiology Orders: 04/22/17 02:28 ABD & PELVIS W/O PO OR IV CONT [CT] Stat - Medication Orders Current Medication Orders: Discontinued Medications Alprazolam (Xanax) 0.25 mg PO STAT STA PRN Reason: Protocol Stop: 04/22/17 03:44 Last Admin: 04/22/17 03:57 Dose: 0.25 mg Ondansetron HCl (Zofran Inj) 4 mg IVP STAT STA Stop: 04/22/17 02:29 Last Admin: 04/22/17 03:00 Dose: 4 mg IVP Administration Document 04/22/17 03:00 CNR (Rec: 04/22/17 03:17 CNR [id number]) Charges for Administration # of IVP Administrations 1 Pantoprazole Sodium (Protonix Inj) 40 mg IVP STAT STA Stop: 04/22/17 02:29 Last Admin: 04/22/17 03:00 Dose: 40 mg IVP Administration Document 04/22/17 03:00 CNR (Rec: 04/22/17 03:16 CNR [id number]) Charges for Administration # of IVP Administrations 1 Disposition/Present on Arrival <Wes Chaparro - Last Filed: 04/22/17 03:35> - Present on Arrival Any Indicators Present on Arrival: No History of DVT/PE: No History of Uncontrolled Diabetes: No Urinary Catheter: No History of Decub. Ulcer: No History Surgical Site Infection Following: CABG - Mediastinitis - Disposition Have Diagnosis and Disposition been Completed?: Yes Disposition Time: 04:11 Patient Plan: Discharge <Asad Richardson - Last Filed: 04/22/17 05:35> - Disposition Diagnosis: Nausea & vomiting Disposition: HOME/ ROUTINE Condition: STABLE Discharge Instructions (ExitCare): Colitis (ED) Additional Instructions: Mrs. Chowdary, thank you for letting us take care of you today. Your provider was Dr. Chaparro. You were treated for nausea and vomiting. The emergency medical care you received today was directed at your acute symptoms. If you were prescribed any medication, please fill it and take as directed. It may take several days for your symptoms to resolve. Return to the Emergency Department if your symptoms worsen, do not improve, or if you have any other problems. Please contact your doctor or call one of the physicians/clinics you have been referred to that are listed on the Patient Visit Information form that is included in your discharge packet. Bring any paperwork you were given at discharge with you along with any medications you are taking to your follow up visit. Our treatment cannot replace ongoing medical care by a primary care provider (PCP) outside of the emergency department. Thank you for allowing the [facility] team to be part of your care today. PLEASE FOLLOW UP WITH YOUR PRIMARY CARE DOCTOR WITHIN ONE TO TWO WEEKS If you had an X-Ray or CT scan: A Radiologist will review the ED reading if any change in treatment is needed we will contact you. Prescriptions: metroNIDAZOLE [Flagyl] 500 mg PO TID #15 tab Forms: Familonet (Croatian)
[2017-04-22 02:58] LABS: BASO # 0.03 K/mm3 (0.0-2.0); BASO % 0.3 % (0.0-3.0); EOS # 0.1 (0.0-0.7); EOS % 1.3 % (1.5-5.0); GRAN # 6.45 (1.4-6.5); GRAN % 64.6 % (50.0-68.0); HEMATOCRIT 34.8 % (36.0-48.0); LYMPH # 2.7 (1.2-3.4); LYMPH % 27.5 % (22.0-35.0); MEAN CORPUSCULAR HGB CONC 33.3 g/dl (31.0-37.0); MEAN PLATELET VOLUME 9.3 fl (7.0-11.0); MONO # 0.6 (0.1-0.6); MONO % 6.3 % (1.0-6.0); RED CELL DISTRIBUTION WIDTH 13.1 % (11.5-14.5)
[2017-04-22 03:24] LABS: ALB/GLOB RATIO 1.4 (1.1-1.8); ALKALINE PHOSPHATASE 59 U/L (38-126); ALT/SGPT 22 U/L (7-56); AST/SGOT 30 U/L (14-36); BILIRUBIN,TOTAL 0.5 mg/dL (0.2-1.3); BLOOD UREA NITROGEN 19 mg/dL (7-21); CALCIUM 10.2 mg/dL (8.4-10.5); CARBON DIOXIDE 28 mmol/L (21-33); CHLORIDE 100 mmol/L (98-107); GFR AFRICAN-AMERICAN > 60; GLUCOSE,RANDOM 203 mg/dL (70-110); LIPASE 175 U/L (23-300); TOTAL PROTEIN 8.1 g/dL (5.8-8.3)
[2017-04-22 03:29] LABS: URINE BILIRUBIN NEGATIVE (NEGATIVE); URINE BLOOD NEGATIVE (NEGATIVE); URINE GLUCOSE (UA) NEGATIVE (NEGATIVE); URINE KETONE NEGATIVE (NEGATIVE); URINE LEUKOCYTE ESTERASE NEGATIVE Leu/uL (NEGATIVE); URINE PROTEIN NEGATIVE mg/dL (<30 mg/dL); URINE UROBILINOGEN 0.2 E.U./dL (<1 E.U./dL)
[2017-04-22 03:38] LABS: POTASSIUM 4.8 mmol/L (3.6-5.0); SODIUM 139 mmol/L (132-148)
[2017-04-22 03:39] LABS: URINE APPEARANCE CLEAR (CLEAR); URINE COLOR YELLOW (YELLOW)
--- NOTE | 2017-04-22 03:45 | CT ---
EXAM: CT Abdomen and Pelvis Without Intravenous Contrast CLINICAL HISTORY: 67 years old, female; Pain; Abdominal pain; Generalized TECHNIQUE: Axial computed tomography images of the abdomen and pelvis without intravenous contrast. All CT scans at this facility use one or more dose reduction techniques, viz.: automated exposure control; ma/kV adjustment per patient size (including targeted exams where dose is matched to indication; i.e. head); or iterative reconstruction technique. Coronal and sagittal reformatted images were created and reviewed. COMPARISON: CT - ABD PELVIS W/O PO OR IV CONT 2016-11-06 02:44 FINDINGS: Limitations: Lack of intravenous contrast. Lower thorax: Minimal atelectasis/scarring. Coronary artery calcifications. ABDOMEN: Liver: Few calcifications. Gallbladder and bile ducts: No calcified stones. No ductal dilation. Pancreas: Unremarkable. No ductal dilation. Spleen: No splenomegaly. Adrenals: No mass. Kidneys and ureters: No renal calculi. 0.4 cm hyperdense lesion within LEFT kidney, grossly stable and likely proteinaceous/hemorrhagic cyst. No hydronephrosis. Stomach and bowel: Few scattered diverticula within colon. No associated inflammatory stranding. Segmental areas of mild mural thickening vs underdistention of large bowel. No associated inflammatory stranding. No obstruction. Appendix: Normal caliber. No inflammation. PELVIS: Bladder: Unremarkable. No stones. Reproductive: Lobulated uterus with coarse calcifications. ABDOMEN and PELVIS: Intraperitoneal space: No significant fluid collection. No free air. Bones/joints: No acute fracture. Degenerative changes and scoliosis of spine. Soft tissues: Unremarkable. Vasculature: Mild atherosclerotic disease. Minimal ectasia infrarenal aorta up to 2.2 cm. Lymph nodes: No pathologically enlarged lymph nodes. IMPRESSION: 1. Mild colitis vs underdistention. Favor underdistention. Clinical correlation is needed. 2. Probable fibroid uterus. 3. Incidental/non-acute findings are described above.
[2017-04-22 04:20] VITALS: BP 157/78; PULSE 85; RESP 16; O2SAT 98
--- NOTE | 2017-04-22 13:43 | CARD ---
APPROVED REPORT EKG Measurement Heart [id number] <Conclusion> Normal sinus rhythm Incomplete left bundle branch block Borderline ECG
== END 2017-04-22 04:28 | disposition home or self-care (01) ==
LOC: ED 01:49
DX: R11.2 Nausea with vomiting, unspecified (principal); I10 Essential (primary) hypertension; E11.9 Type 2 diabetes mellitus without complications; Z87.891 Personal history of nicotine dependence
CPT/HCPCS: 74176; 80053; 81003; 82948; 83690; 85025; 93005; 96374; 96375; 99284; C9113; J2405

== ENCOUNTER 2017-10-13 04:58 | Emergency (ER) | payer MEDICAID, MEDICARE ==
[2017-10-13 04:58] VITALS: BMI 21.7
--- NOTE | 2017-10-13 05:42 | ED PDOC ---
Arrival/HPI - General Chief Complaint: Chest Pain Time Seen by Provider: 10/13/17 05:04 Historian: Patient - History of Present Illness Narrative History of Present Illness (Text): 10/13/17 05:42 Heather Chowdary is a 67 year old female, whose past medical history includes CAD with coronary stent placement, CABG, hypertension, hyperlipidemia, diabetes, recent pacemaker placement 1.5 months prior, and ischemic cardiomyopathy, who presents to the Emergency department complaining of chest pain. Patient states she has been experiencing mid-sternal chest pain radiating to her left shoulder today. Patient notes she has experienced similar symptoms intermittently for approximately 1 month. Patient denies any fever, chills, shortness of breath, nausea, vomiting, diarrhea, urinary symptoms, back pain, neck pain, headache, dizziness, or any other complaints. PMD: Dr. Torres Communications Technologist: Dr. Guevara Symptom Onset: Gradual Symptom Course: Intermittent Activities at Onset: Light Context: Home Past Medical History - Provider Review Nursing Documentation Reviewed: Yes - Past History Past History: No Previous - Infectious Disease Hx of Infectious Diseases: None - Tetanus Immunization Tetanus Immunization: Unknown - Cardiac Hx Cardiac Arrhythmia: Yes Hx ID: Yes Hx Hypertension: Yes Hx Pacemaker: Yes - Pulmonary Hx Respiratory Disorders: No Hx Bronchitis: No (pt denies) Hx Pneumonia: No (pt denies) - Neurological Hx Neurological Disorder: No Hx Paralysis: No - HEENT Hx HEENT Disorder: Yes (reading glasses) Hx Cataracts: Yes (sx r eye 11/2012) - Renal Hx Renal Disorder: No - Endocrine/Metabolic Hx Endocrine Disorders: Yes Hx Diabetes Mellitus Type 2: Yes - Hematological/Oncological Hx Blood Disorders: No Hx Blood Transfusions: No Hx Blood Transfusion Reaction: No - Integumentary Hx Dermatological Disorder: No - Musculoskeletal/Rheumatological Hx Musculoskeletal Disorders: No - Gastrointestinal Hx Gastrointestinal Disorders: No - Genitourinary/Gynecological Hx Genitourinary Disorders: No - Psychiatric Hx Anxiety: Yes Hx Emotional Abuse: No Hx Physical Abuse: No Hx Substance Use: No - Surgical History Hx Cardiac Catheterization: Yes (02/20/14) Hx Coronary Artery Bypass Graft: Yes Hx Coronary Stent: Yes (2007 x2) Hx Open Heart Surgery: Yes - Anesthesia Hx Anesthesia: Yes - Suicidal Assessment Feels Threatened In Home Enviroment: No Family/Social History - Physician Review Nursing Documentation Reviewed: Yes Family/Social History: Unknown Family HX Smoking Status: Former Smoker Hx Alcohol Use: No Hx Substance Use: No Hx Substance Use Treatment: No Allergies/Home Meds Allergies/Adverse Reactions: Allergies metoclopramide Allergy (Verified 10/13/17 05:06) SHORTNESS OF BREATH zolpidem tartrate [From Ambien] Adverse Reaction (Verified 10/13/17 05:06) anxiety Home Medications: Home Meds Medication Instructions Recorded Confirmed Aspirin [Aspir 81] 81 mg PO QAM 11/25/12 01/21/17 Clopidogrel Bisulfate [Clopidogrel] 75 mg PO QAM 11/25/12 01/21/17 Furosemide [Lasix] 40 mg PO QAM 03/13/15 01/21/17 Potassium Chloride [Klor-Con 10] 10 meq PO QAM 03/13/15 01/21/17 Carvedilol [Coreg] 12.5 mg PO QPM 11/17/15 01/21/17 Digoxin [Digitek] 125 mcg PO DAILY 11/17/15 01/21/17 Enalapril Maleate [Vasotec] 5 mg PO QAM 11/17/15 01/21/17 Glipizide [Glipizide Xl] 10 mg PO BID 11/17/15 01/21/17 Omeprazole [Prilosec] 40 mg PO QAM 11/17/15 01/21/17 Pravastatin Sodium [Pravachol] 40 mg PO QPM 11/17/15 01/21/17 Sitagliptin Phos/Metformin HCl 1 ter PO BID 11/17/15 01/21/17 [Janumet Xr 50-1,000 mg Tablet] Tramadol HCl [Ultram] 50 mg PO BID PRN 11/17/15 01/21/17 Gabapentin [Neurontin] 100 mg PO BID 01/24/16 01/21/17 Repaglinide 1 mg PO DAILY 11/06/16 01/21/17 Valacyclovir HCl [Valtrex] 1 tab PO TID 01/21/17 01/21/17 Review of Systems - Physician Review All systems were reviewed & negative as marked: Yes - Review of Systems Constitutional: Normal. absent: Fevers Eyes: Normal ENT: Normal Respiratory: Normal. absent: Cough Cardiovascular: Chest Pain Gastrointestinal: Normal. absent: Abdominal Pain, Nausea, Vomiting Genitourinary Female: Normal. absent: Dysuria, Frequency, Hematuria, Urine Output Changes Musculoskeletal: Normal. absent: Back Pain, Neck Pain Skin: Normal. absent: Rash Neurological: Normal. absent: Headache, Dizziness Endocrine: Normal Hemo/Lymphatic: Normal Psychiatric: Normal Physical Exam Vital Signs Reviewed: Yes Vital Signs Pulse Resp BP Pulse Ox 10/13/17 05:26 102 H 18 149/88 99 Temperature: Afebrile Blood Pressure: Normal Pulse: Regular Respiratory Rate: Normal Appearance: Positive for: Well-Appearing, Non-Toxic, Comfortable Pain Distress: None Mental Status: Positive for: Alert and Oriented X 3 - Systems Exam Head: Present: Atraumatic, Normocephalic Pupils: Present: PERRL Extroacular Muscles: Present: EOMI Conjunctiva: Present: Normal Mouth: Present: Moist Mucous Membranes Neck: Present: Normal Range of Motion Respiratory/Chest: Present: Clear to Auscultation, Good Air Exchange. No: Respiratory Distress, Accessory Muscle Use Cardiovascular: Present: Regular Rate and Rhythm, Normal S1, S2. No: Murmurs Abdomen: No: Tenderness, Distention, Peritoneal Signs Back: Present: Normal Inspection Upper Extremity: Present: Normal Inspection. No: Cyanosis, Edema Lower Extremity: Present: Normal Inspection. No: Edema Neurological: Present: GCS=15, CN II-XII Intact, Speech Normal Skin: Present: Warm, Dry, Normal Color. No: Rashes Psychiatric: Present: Alert, Oriented x 3, Normal Insight, Normal Concentration Medical Decision Making ED Course and Treatment: 10/13/17 05:42 Impression: 67 year old female brought in for mid-sternal chest pain radiating to left shoulder. Plan: -- EKG -- Chest X-ray -- Labs, cardiac enzymes, BNP -- Aspirin -- Xanax -- Morphine -- Reassess and disposition Prior Visits: Notes and results from previous visits were reviewed. On 04/22/2017, pt was seen in the Emergency department for abdominal pain and vomiting. Pt was d/c home. Progress Notes: Reviewed EKG, sinus tachycardia at 101 bpm. Incomplete LBBB. Non-specific ST/T wave changes. 10/13/17 06:28 Chest X-ray reviewed, shows no acute processes. 10/13/17 07:16 Case d/w Dr.A. Torres.Accepts to his service. - Lab Interpretations Lab Results: 10/13/17 06:34 10/13/17 06:34 Lab Results 10/13/17 06:34: WBC 7.0 D, RBC 3.86, Hgb 10.8 L, Hct 32.6 L, MCV 84.5, MCH 28.0 , MCHC 33.1, RDW 13.1, Plt Count 248, MPV 9.2 10/13/17 06:34: Sodium 142, Potassium 4.5, Chloride 101, Carbon Dioxide 25, Anion Gap 21 H, BUN 24 H, Creatinine 0.9, Est GFR ( Amer) > 60, Est GFR ( Non-Af Amer) > 60, Random Glucose 215 H, Calcium 9.7, Total Bilirubin 0.5, AST 32, ALT 22, Alkaline Phosphatase 54, Lactate Dehydrogenase 450, Total Creatine Kinase 71, Troponin I < 0.01 D, NT-Pro-B Natriuret Pep 114, Total Protein 7.5, Albumin 4.6, Globulin 2.9, Albumin/Globulin Ratio 1.6 10/13/17 06:34: PT 10.8, INR 0.94, APTT 26.1 - RAD Interpretation Radiology Orders: 10/13/17 05:43 CHEST PORTABLE [RAD] Stat [employer] Representative: ED Physician - EKG Interpretation Interpreted by ED Physician: Yes Type: 12 lead EKG - Medication Orders Current Medication Orders: Discontinued Medications Alprazolam (Xanax) 0.25 mg PO ONCE ONE Stop: 10/13/17 05:50 Last Admin: 10/13/17 06:15 Dose: 0.25 mg Aspirin (Aspirin) 325 mg PO ONCE STA Stop: 10/13/17 05:50 Last Admin: 10/13/17 06:16 Dose: 325 mg Morphine Sulfate (Morphine) 2 mg IVP STAT STA Stop: 10/13/17 05:50 Last Admin: 10/13/17 06:16 Dose: 2 mg IVP Administration Document 10/13/17 06:16 SS (Rec: 10/13/17 06:16 SS [id number]) Charges for Administration # of IVP Administrations 1 - Scribe Statement The provider has reviewed the documentation as recorded by the Osmel Poole Provider Scribe Attestation: All medical record entries made by the Scribe were at my direction and personally dictated by me. I have reviewed the chart and agree that the record accurately reflects my personal performance of the history, physical exam, medical decision making, and the department course for this patient. I have also personally directed, reviewed, and agree with the discharge instructions and disposition. Disposition/Present on Arrival - Present on Arrival Any Indicators Present on Arrival: No History of DVT/PE: No History of Uncontrolled Diabetes: No Urinary Catheter: No History of Decub. Ulcer: No History Surgical Site Infection Following: CABG - Mediastinitis - Disposition Have Diagnosis and Disposition been Completed?: Yes Diagnosis: Chest pain Disposition: HOSPITALIZED Disposition Time: 07:16 Condition: STABLE Discharge Instructions (ExitCare): Chest Pain (ED) Forms: [employer] (Tai[place]ese)
[2017-10-13] MEDS ORDERED: Morphine 2 mg/2 mL syringe IVP STA (05:49)
[2017-10-13 06:42] LABS: HEMOGLOBIN 10.8 g/dL (12.0-16.0); MEAN CELL VOLUME 84.5 fl (80.0-105.0); MEAN CORPUSCULAR HGB CONC 33.1 g/dl (31.0-37.0); MEAN PLATELET VOLUME 9.2 fl (7.0-11.0); RBC 3.86 10^6/uL (3.5-6.1); RED CELL DISTRIBUTION WIDTH 13.1 % (11.5-14.5)
[2017-10-13 06:51] LABS: ALB/GLOB RATIO 1.6 (1.1-1.8); ALBUMIN 4.6 g/dL (3.0-4.8); ALT/SGPT 22 U/L (7-56); AST/SGOT 32 U/L (14-36); BLOOD UREA NITROGEN 24 mg/dL (7-21); CALCIUM 9.7 mg/dL (8.4-10.5); GFR AFRICAN-AMERICAN > 60; GFR NON-AFRICAN AMERICAN > 60
[2017-10-13 07:02] LABS: B-TYPE NATRIURETIC PEPTIDE 114 pg/mL (0-450); TROPONIN I < 0.01 ng/mL
[2017-10-13 07:03] LABS: INR 0.94 (0.93-1.08); PARTIAL THROMBOPLASTIN TIME 26.1 Seconds (25.1-36.5); PROTHROMBIN TIME 10.8 SECONDS (9.4-12.5)
--- NOTE | 2017-10-13 08:12 | RAD ---
HISTORY: chest pain COMPARISON: 11/06/2016 FINDINGS: LUNGS: No active pulmonary disease. PLEURA: No significant pleural effusion identified, no pneumothorax apparent. CARDIOVASCULAR: Normal. OSSEOUS STRUCTURES: No significant abnormalities. VISUALIZED UPPER ABDOMEN: Normal. OTHER FINDINGS: There is a left-sided dual lead pacemaker IMPRESSION: No active disease.
[2017-10-13] MEDS ORDERED: Enoxaparin 40 mg Syringe SC STA (09:25)
[2017-10-13] MEDS ORDERED: Potassium Chloride 10 mEq ER Tab PO SCH (10:00)
[2017-10-13] MEDS ORDERED: [UNRECOGNIZED DRUG - OTHER] PO SCH (10:00)
[2017-10-13] MEDS ORDERED: Digoxin 125 mcg (0.125 mg) Tab PO SCH (10:00)
[2017-10-13] MEDS ORDERED: GlipiZIDE 10 mg SR Tab PO SCH (10:00)
[2017-10-13] MEDS ORDERED: SITAGLIPTIN PHOS PO SCH (10:00)
[2017-10-13] MEDS ORDERED: METFORMIN HCL PO SCH (10:00)
[2017-10-13 10:43] LABS: HDL CHOLESTEROL 34 mg/dL (29-60)
[2017-10-13 10:53] LABS: LDL CHOLESTEROL 106 mg/dL (0-129)
[2017-10-13] MEDS ORDERED: Insulin Reg-LOW-Coverage SC SCH (11:30)
[2017-10-13] MEDS ORDERED: Insulin Reg-MEDIUM-Coverage SC SCH (11:30)
[2017-10-13 14:26] VITALS: RESP 18
--- NOTE | 2017-10-13 14:26 | CARD ---
APPROVED REPORT EKG Measurement Heart [id number] ID [id number] <Conclusion> Sinus tachycardia Incomplete left bundle branch block Borderline ECG
[2017-10-13 14:37] LABS: TROPONIN I < 0.01 ng/mL
[2017-10-13 15:15] VITALS: BP 113/70; PULSE 90
[2017-10-13 16:57] VITALS: PULSE 93; TEMP 98; O2SAT 99
--- NOTE | 2017-10-13 20:32 | HP ---
HISTORY OF PRESENT ILLNESS: The patient is a 67 year old woman with a past medical history of CAD s/p CABG and ischemic cardiomyopathy s/p AICD who presented to the ED for evaluation of a 1 month history of progressively worsening substernal/epigastric discomfort. The patient reports that for the past 1 month or so she has been experiencing the aforementioned symptoms however over the course of the past 4-5 days they have been more frequent and increased in intensity. She describes the discomfort as a chest tightness radiating across the anterior chest wall as well as a dull abdominal pain to the epigastrium. She denies diaphoresis, dyspnea or palpitations associated with the symptoms. She does, however, report that she has anxiety which is particularly worse at night and this is when she experiences the aforementioned symptoms. Given the increasing intensity of her discomfort, she opted for ED evaluation. Upon arrival to the ED she was found to be afebrile and hemodynamically stable. Initial lab studies were also unremarkable, including a negative troponin level. Due to her underlying cardiac history she was admitted to cycle cardiac enzymes so as to rule out ACS. PAST MEDICAL HISTORY: As per HPI, also hypertension, hyperlipidemia, type 2 diabetes mellitus and anxiety disorder. PAST SURGICAL HISTORY: As per HPI. ALLERGIES: Ambien and Metoclopramide. MEDICATIONS: Plavix 75 mg p.o. daily, Pravachol 40 mg p.o. daily, Coreg 12.5 mg p.o. b.i.d., Lasix 40 mg p.o. daily, Donepezil 5 mg p.o. daily, Glipizide 10 mg p.o. b.i.d., Digoxin 0.125 mg p.o. daily, Aspirin 81 mg p.o. daily, Omeprazole 40 mg p.o. daily, Janumet mg p.o. b.i.d. and Gabapentin 300 mg p.o. b.i.d. FAMILY HISTORY: Noncontributory. SOCIAL HISTORY: The patient is reports to me a former 20-pack year smoking history, but denies illicit drug abuse or alcohol use. REVIEW OF SYSTEMS: A 14-point review of systems was negative except as per HPI. PHYSICAL EXAMINATION: VITAL SIGNS: Temperature 98, pulse 94, blood pressure 106/57, respiratory rate 20, oxygen saturation 99% on room air. GENERAL: No apparent distress. HEENT: PERRL. EOMI. No scleral icterus. No conjunctival pallor. NECK: Supple with full range of motion. No JVD. No bruits. LUNGS: Clear to auscultation. CARDIOVASCULAR: Regular rate and rhythm. Normal S1 and S2. CHEST: Healed midline sternotomy scar. AICD to left anterior chest wall. ABDOMEN: Normoactive bowel sounds. Soft, mild tenderness to palpation to epigastrium with voluntary guarding. EXTREMITIES: No edema. NEUROLOGIC: Awake, alert and oriented x 3. No focal motor deficits. LABORATORY DATA: WBC is 7, hemoglobin 11, hematocrit 33, platelets 248. Chemistry reviewed and unremarkable. Troponin less than 0.01. ASSESSMENT: The patient is a 56 year old woman with multiple medical comorbidities including CAD s/p CABG and ischemic cardiomyopathy s/p AICD who presented for evaluation of a 1 month history of progressively worsening anterior chest wall pain and who was admitted to rule out ACS. PLAN: 1. Atypical chest pain, low suspicion for acute coronary syndrome. An initial troponin level was negative and a repeat troponin will be performed in [address] Guevara greatly appreciated and after discussing the case with Dr. Guevara, he has agreed that the etiology of the chest discomfort is unlikely to be cardiac in nature and if the 2nd troponin is negative, the patient will be discharged to home. 2. Anxiety disorder. The patient endorses daily nighttime anxiety and has previously been on Xanax. We will resume Xanax 0.5 mg p.o. b.i.d. as needed for anxiety. 3. CAD s/p CABG. We will resume the patient's medications. 4. Type 2 diabetes mellitus with diabetic neuropathy. Resume outpatient medications. Repeat HbA1c. 5. Hypertension, blood pressure controlled. Continue with current medications. 6. Hyperlipidemia. Continue with current medications. 7. GERD. Continue Protonix 40 mg p.o. daily. 8. Prophylaxis. Continue Protonix for GI prophylaxis. DVT prophylaxis not indicated as the patient is ambulatory. CODE STATUS: Full code. Taran Torres MD [facility]
--- NOTE | 2017-10-13 20:51 | CON ---
DATE: 10/13/2017 REASON FOR CONSULTATION: Cardiac evaluation, admitted with chest pain, history of coronary artery disease, history of AICD placement. BRIEF CLINICAL HISTORY: This is a 67-year-old female with past medical history significant for coronary artery disease, status post CABG, status post PTCA, history of cardiomyopathy, decreased ejection fraction, recently had defibrillator placed, came in to the ER with complaint of epigastric pain radiating to the chest, also pain in the left shoulder on moving, look like more frozen shoulder. Denies any chest pain on exertion. Patient's daughter and family is at bedside, states when she walks no chest pain, when she lay down, she feels the chest pain, never happened while the patient is walking. Also state that patient's aunt is very sick at [facility] who raised her and the patient is in lot of stress, unable to sleep. PAST MEDICAL HISTORY: Significant for coronary artery disease, status post CABG in 2006, history of coronary artery bypass surgery, four-vessel, history of recent stress test done that is negative. Most recently, the patient had a MUGA scan done that shows decreased LV function, so the patient had defibrillator done 4 to 6 weeks ago, ejection fraction 29%, history of hypertension, hyperlipidemia and diabetes. Previous cardiac workup as follows, most recently patient had a MUGA scan on 06/12/2017 that showed ejection fraction 29%, dated 06/12/2017. Prior to that patient's MUGA scan on 05/27/2016 that showed ejection fraction 41%. Prior to that MUGA scan 01/24/2015 with an ejection fraction 38%. History of cardiac catheterization on 02/20/2014 that shows a triple vessel disease, patent CARPENTER to LAD, patent saphenous graft to the obtuse marginal 1, patent saphenous graft to the diagonal 1, occluded SVG to RCA but RPDA was well collateralized from the circumflex, so no PTCA was done. RCA was done. At that time, medical treatment was recommended and patient was put on LANA inhibitors, Coreg and diuretics. The most recent as mentioned on 05/23/2017, patient had a MUGA scan, 29%. Patient had AICD was placed 4 weeks ago, history of coronary artery bypass surgery, four vessels CABG in 2006, initially CARPENTER to LAD, sequential SVG to diagonal 1 and OM1 and RCA was done. Last catheterization as mentioned on 02/20/2014 patent CARPENTER to LAD, patent saphenous graft to OM1, patent saphenous graft to the diagonal 1, mid LAD, mid diagonal 70% stenosis. PCI of the right coronary artery was not done, though occluded SVG to RCA, but it has very well collateralized RPDA. EDP at that time was 20% and EF was 35%, but the serial MUGA scan shows continuously deteriorating LV. Last MUGA as mentioned above, 06/02/2017, 29% following this patient had AICD was placed. SOCIAL HISTORY: Denies any smoking. Denies any history of alcohol abuse. CURRENT MEDICATIONS: Patient is taking tramadol, pravastatin, Prilosec, glipizide, gabapentin, Lasix 40 mg daily, Vasotec 5 mg daily, digoxin 0.125 mg, Plavix 75 mg daily, carvedilol and aspirin REVIEW OF SYSTEMS: As per HPI. PHYSICAL EXAMINATION: As follows: VITAL SIGNS: Temperature afebrile, heart rate 68, blood pressure 106/50. HEENT: PERRLA. Extraocular muscles intact. NECK: Supple. No carotid bruit or thyromegaly. CHEST: Clear to auscultation. HEART: S1 and S2 regular. ABDOMEN: Soft. EXTREMITIES: Clubbing and cyanosis negative. Tenderness in the epigastrium significant. Also, left shoulder anterior tubercle is tender and decreased movement as well as tenderness on movement. LABORATORY DATA: Blood workup as follows: WBC 7, hemoglobin 10, hematocrit 32.6, platelet count 248. Chemistry shows sodium 142, potassium 4.5, chloride 101, carbon dioxide 25, anion gap of 21, BUN 24, creatinine 0.9. Troponin is 0.01. DIAGNOSTIC DATA: EKG showed normal sinus, incomplete left bundle, new acute ST-T changes noted. IMPRESSION: Atypical chest pain from epigastrium, history of cardiomyopathy, history of coronary artery bypass graft in 2006, history of percutaneous transluminal coronary angioplasty of a diagonal 1, history of recent CAT in 2013, patent saphenous graft to diagonal 1 and sequential to OM-1, patent left internal mammary artery to left anterior descending, occluded saphenous vein graft to right coronary artery but very well collateralized. Most recent MUGA scan on 06/02/2017 automatic implantable cardioverter-defibrillator, diabetes, hypertension, hyperlipidemia, anxiety disorder, stress on the family. RECOMMENDATION: Follow up serial CPK, troponin. If the troponin remains negative, discussed with Dr. Taran Torres will possible discharge home. We will follow with you. We will resume all the medications and give DVT prophylaxis and follow up CPK, troponin as well as the lipid profile, TSH, hemoglobin A1c. If the troponin remains negative, possible discharge home and follow up as outpatient. Discussed with Dr. Taran Torres. Discussed with the patient's daughter and the family. Thank you, Dr. Taran Torres, for providing us the opportunity in taking care of the patient, Heather Chowdary. We will follow with you. Gt Guevara MD
--- NOTE | 2017-10-15 00:07 | DS ---
ADMITTING DIAGNOSIS: Atypical chest pain. DISCHARGE DIAGNOSIS: Anxiety disorder. SECONDARY DIAGNOSES: CAD s/p CABG, ischemic cardiomyopathy s/p AICD, hypertension, hyperlipidemia and NIDDM. CONSULTATIONS: Dr. Guevara (Cardiology). PROCEDURES: None. IMAGING STUDIES: Chest x-ray demonstrated no active disease. HISTORY OF PRESENT ILLNESS: The patient is a 67 year old woman with a past medical history of CAD s/p CABG and ischemic cardiomyopathy s/p AICD who presented to the ED for evaluation of a 1 month history of progressively worsening substernal/epigastric discomfort. The patient reports that for the past 1 month or so she has been experiencing the aforementioned symptoms however over the course of the past 4-5 days, they have been more frequent and increased in intensity. She described the discomfort as a chest tightness radiating across the anterior chest wall as well as a dull abdominal pain to the epigastrium. She denied diaphoresis, dyspnea or palpitation associated with these symptoms. She does, however, report that she has anxiety which is particularly worse at night and this is when she experiences the aforementioned symptoms. Given the increasing nature of her discomfort, she opted for ED evaluation. Upon arrival to the ED she was found to be afebrile and hemodynamically stable. Initial laboratory studies were also unremarkable including a negative troponin level. Due to her underlying cardiac history, she was admitted to cycle cardiac enzymes so as to rule out acute coronary syndrome. HOSPITAL COURSE: The patient was promptly evaluated in the ED by her PMD and by Dr. Guevara. After conferring, it was determined that there was a low clinical suspicion for acute coronary syndrome and that the etiology of the patient's discomfort seemed more likely secondary to anxiety. After a second set of cardiac enzymes resulted negative, she was cleared for discharge to home. Prior to discharge she was prescribed anxiolytic medications so as to mitigate her anxiety symptoms. CONDITION: Good, improved. DISPOSITION: Home. DISCHARGE MEDICATIONS: Plavix 75 mg p.o. daily, Pravachol 40 mg p.o. daily, Coreg 12.5 mg p.o. b.i.d., Lasix 40 mg p.o. daily, Donepezil 5 mg p.o. daily, Glipizide 10 mg p.o. b.i.d., Aspirin 81 mg p.o. daily, Omeprazole 40 mg p.o. daily, Digoxin 0.125 mg p.o. daily, Janumet mg p.o. b.i.d., Gabapentin 300 mg p.o. b.i.d. and Xanax 0.5 mg p.o. b.i.d. as needed for anxiety. DISCHARGE INSTRUCTIONS: The patient was advised that if she has any recurrence of her symptoms to present to her PMD or to the nearest ED immediately. FOLLOWUP: The patient to follow up with her PMD in 1 week. The patient to follow up with Dr. Guevara as scheduled. Taran Torres MD MTDD
== END 2017-10-13 16:57 | disposition home or self-care (01) ==
LOC: ED 04:58 → UNDOADMOB 07:14 → ERH 07:14
DX: F41.9 Anxiety disorder, unspecified (principal); I25.10 Atherosclerotic heart disease of native coronary artery without angina pectoris; Z95.1 Presence of aortocoronary bypass graft; I25.5 Ischemic cardiomyopathy; Z95.810 Presence of automatic (implantable) cardiac defibrillator; I10 Essential (primary) hypertension; E78.5 Hyperlipidemia, unspecified; E11.9 Type 2 diabetes mellitus without complications
CPT/HCPCS: 71045; 80053; 80061; 82550; 83036; 83615; 83880; 84443; 84484; 85027; 85610; 85730; 93005; 96374; 99284; J2270

== ENCOUNTER 2018-05-26 13:32 | Emergency (ER) | payer MEDICARE, MEDICAID ==
[2018-05-26 13:32] VITALS: PULSE 90
[2018-05-26 13:41] VITALS: BMI 22.3
[2018-05-26 13:47] VITALS: RESP 18
[2018-05-26] MEDS ORDERED: Dextrose 5%/0.45% NS 1,000 ML IV STA (14:00)
[2018-05-26 14:38] LABS: BASO # 0.03 K/mm3 (0.0-2.0); BASO % 0.3 % (0.0-3.0); EOS # 0.2 (0.0-0.7); EOS % 1.8 % (1.5-5.0); GRAN # 6.36 (1.4-6.5); GRAN % 71.3 % (50.0-68.0); HEMOGLOBIN 11.2 g/dL (12.0-16.0); LYMPH % 22.5 % (22.0-35.0); MEAN CELL VOLUME 87.7 fl (80.0-105.0); MEAN CORPUSCULAR HEMOGLOBIN 28.1 pg (25.0-35.0); MEAN CORPUSCULAR HGB CONC 32.1 g/dl (31.0-37.0); MEAN PLATELET VOLUME 9.8 fl (7.0-11.0); MONO # 0.4 (0.1-0.6); MONO % 4.1 % (1.0-6.0); RBC 3.98 10^6/uL (3.5-6.1); RED CELL DISTRIBUTION WIDTH 13.2 % (11.5-14.5); WHITE BLOOD COUNT 8.9 10^3/uL (4.5-11.0)
[2018-05-26 14:45] LABS: ALB/GLOB RATIO 1.4 (1.1-1.8); ALBUMIN 4.5 g/dL (3.0-4.8); ALT/SGPT 21 U/L (7-56); AST/SGOT 20 U/L (14-36); BLOOD UREA NITROGEN 21 mg/dL (7-21); CALCIUM 9.5 mg/dL (8.4-10.5); GFR NON-AFRICAN AMERICAN > 60
--- NOTE | 2018-05-26 14:49 | ED PDOC ---
Arrival/HPI - General Chief Complaint: Medical Clearance Historian: Patient - History of Present Illness Narrative History of Present Illness (Text): 05/26/18 13:45 68 y/o F, with past medical history of CAD s/p Quadruple CABG (8 years ago) and PCI s/p 1 stent (5 years ago), HTN, HLD, DM, and anxiety, presents to the ED via EMS accompanied by family for evaluation of low blood sugar since prior to arrival. Patient informs measuring her blood sugar this morning after taking metformin and had a reading of 37. Patient reports associated diaphoresis and weakness but denies any sycopal episode. Patient informs taking sugar cube without any improvement to symptoms, prompting her to present to the ED for medical evaluation. Patient denies any fevers, chills, headache, chest pain, shortness of breath, dyspnea on exertion, cough, abdominal pain, nausea, vomiting, diarrhea, back pain, neck pain, or any other complaints. PMD: Dr. Torres Time/Duration: Prior to Arrival Symptom Onset: Gradual Symptom Course: Unchanged Activities at Onset: Light Context: Home Past Medical History - Provider Review Nursing Documentation Reviewed: Yes - Past History Past History: No Previous - Infectious Disease Hx of Infectious Diseases: None - Tetanus Immunization Tetanus Immunization: Unknown - Reproductive Menopause: Yes - Cardiac Hx Cardiac Arrhythmia: Yes Hx [place]: Yes Hx Hypertension: Yes Hx Pacemaker: Yes - Pulmonary Hx Respiratory Disorders: No - Neurological Hx Neurological Disorder: No Hx Paralysis: No - HEENT Hx HEENT Disorder: Yes (reading glasses) Hx Cataracts: Yes (sx r eye 11/2012) - Renal Hx Renal Disorder: No - Endocrine/Metabolic Hx Endocrine Disorders: Yes Hx Diabetes Mellitus Type 2: Yes - Hematological/Oncological Hx Blood Disorders: No Hx Blood Transfusions: No Hx Blood Transfusion Reaction: No - Integumentary Hx Dermatological Disorder: No - Musculoskeletal/Rheumatological Hx Musculoskeletal Disorders: No - Gastrointestinal Hx Gastrointestinal Disorders: No - Genitourinary/Gynecological Hx Genitourinary Disorders: No - Psychiatric Hx Anxiety: Yes Hx Emotional Abuse: No Hx Physical Abuse: No Hx Substance Use: No - Surgical History Hx Cardiac Catheterization: Yes (02/20/14) Hx Coronary Artery Bypass Graft: Yes Hx Coronary Stent: Yes (2007 x2) Hx Open Heart Surgery: Yes - Anesthesia Hx Anesthesia: Yes Hx Anesthesia Reactions: No Hx Malignant Hyperthermia: No - Suicidal Assessment Feels Threatened In Home Enviroment: No Family/Social History - Physician Review Nursing Documentation Reviewed: Yes Family/Social History: No Known Family HX Smoking Status: Former Smoker Hx Alcohol Use: No Hx Substance Use: No Hx Substance Use Treatment: No Allergies/Home Meds Allergies/Adverse Reactions: Allergies metoclopramide Allergy (Verified 10/13/17 05:06) SHORTNESS OF BREATH zolpidem tartrate [From Ambien] Adverse Reaction (Verified 10/13/17 05:06) anxiety Home Medications: Home Meds Medication Instructions Recorded Confirmed Aspirin [Aspir 81] 81 mg PO QAM 11/25/12 01/21/17 Clopidogrel Bisulfate [Clopidogrel] 75 mg PO QAM 11/25/12 01/21/17 Furosemide [Lasix] 40 mg PO QAM 03/13/15 01/21/17 Potassium Chloride [Klor-Con 10] 10 meq PO QAM 03/13/15 01/21/17 Carvedilol [Coreg] 12.5 mg PO QPM 11/17/15 01/21/17 Digoxin [Digitek] 125 mcg PO DAILY 11/17/15 01/21/17 Enalapril Maleate [Vasotec] 5 mg PO QAM 11/17/15 01/21/17 Glipizide [Glipizide Xl] 10 mg PO BID 11/17/15 01/21/17 Omeprazole [Prilosec] 40 mg PO QAM 11/17/15 01/21/17 Pravastatin Sodium [Pravachol] 40 mg PO QPM 11/17/15 01/21/17 Sitagliptin Phos/Metformin HCl 1 ter PO BID 11/17/15 01/21/17 [Janumet Xr 50-1,000 mg Tablet] Tramadol HCl [Ultram] 50 mg PO BID PRN 11/17/15 01/21/17 Gabapentin [Neurontin] 100 mg PO BID 01/24/16 01/21/17 Repaglinide 1 mg PO DAILY 11/06/16 01/21/17 Valacyclovir HCl [Valtrex] 1 tab PO TID 01/21/17 01/21/17 Review of Systems - Physician Review All systems were reviewed & negative as marked: Yes - Review of Systems Constitutional: absent: Fevers Respiratory: absent: SOB, Cough Cardiovascular: absent: Chest Pain Gastrointestinal: absent: Abdominal Pain, Diarrhea, Nausea, Vomiting Genitourinary Female: absent: Dysuria, Urine Output Changes Musculoskeletal: absent: Back Pain, Neck Pain Skin: absent: Rash Neurological: Dizziness. absent: Headache Endocrine: Diaphoresis Physical Exam Vital Signs Reviewed: Yes Vital Signs Temp Pulse Resp BP Pulse Ox 05/26/18 13:32 97.8 F 79 18 129/76 97 Temperature: Afebrile Blood Pressure: Normal Pulse: Regular Respiratory Rate: Normal Appearance: Positive for: Well-Appearing, Non-Toxic, Comfortable Pain Distress: None Mental Status: Positive for: Alert and Oriented X 3 Finger Stick Blood Glucose: 55 - Systems Exam Head: Present: Atraumatic, Normocephalic Pupils: Present: PERRL Extroacular Muscles: Present: EOMI Conjunctiva: Present: Normal Mouth: Present: Moist Mucous Membranes Neck: Present: Normal Range of Motion Respiratory/Chest: Present: Clear to Auscultation, Good Air Exchange. No: Respiratory Distress, Accessory Muscle Use Cardiovascular: Present: Regular Rate and Rhythm, Normal S1, S2. No: Murmurs Abdomen: No: Tenderness, Distention, Peritoneal Signs Back: Present: Normal Inspection Upper Extremity: Present: Normal Inspection. No: Cyanosis, Edema Lower Extremity: Present: Normal Inspection. No: Edema Neurological: Present: GCS=15, CN II-XII Intact, Speech Normal Skin: Present: Warm, Dry, Normal Color. No: Rashes Psychiatric: Present: Alert, Oriented x 3, Normal Insight, Normal Concentration Medical Decision Making ED Course and Treatment: 05/26/18 13:50 Impression: 68 year old female presents to the ED for evaluation of low blood sugar since prior to arrival. Differential Diagnosis included but are not limited to: -- Hypoglycemia Plan: -- EKG -- Labs -- IV Fluids/dextrose -- Urinalysis -- Reassess and disposition Prior Visits: Notes and results from previous visits were reviewed. Progress Notes: - Lab Interpretations Lab Results: 05/26/18 14:20 05/26/18 14:20 Lab Results 05/26/18 14:20: Sodium 138, Potassium 4.3, Chloride 105, Carbon Dioxide 22, A nion Gap 15, BUN 21, Creatinine 0.9, Est GFR ( Amer) > 60, Est GFR (Non- Af Amer) > 60, Random Glucose 84, Calcium 9.5, Magnesium 1.7, Total Bilirubin 0.3, AST 20, ALT 21, Alkaline Phosphatase 52, Total Protein 7.5, Albumin 4.5, Globulin 3.1, Albumin/Globulin Ratio 1.4 05/26/18 14:20: WBC 8.9, RBC 3.98, Hgb 11.2 L, Hct 34.9 L, MCV 87.7 D, MCH 28.1, MCHC 32.1, RDW 13.2, Plt Count 238, MPV 9.8, Gran % 71.3 H, Lymph % (Auto) 22.5, [place] % (Auto) 4.1, Eos % (Auto) 1.8, Baso % (Auto) 0.3, Gran # 6.36, Lymph # (Auto) 2.0, [place] # (Auto) 0.4, Eos # (Auto) 0.2, Baso # (Auto) 0.03 I have reviewed the lab results: Yes - Medication Orders Current Medication Orders: Dextrose/Sodium Chloride (Dextrose 5%/0.45% Ns 1000 Ml) 1,000 mls @ 100 mls/hr IV .Q10H STA Stop: 05/26/18 23:59 Last Admin: 05/26/18 14:34 Dose: 100 mls/hr eMAR Start Stop Document 05/26/18 14:34 KW (Rec: 05/26/18 14:38 KW [id number]) Intravenous Solution Start Date 05/26/18 Start Time 14:36 End Date 05/27/18 End time 12:00 Total Infusion Time 1284 - Scribe Statement The provider has reviewed the documentation as recorded by the Scribe Rayray Mack. All medical record entries made by the Rodolfoibjames were at my direction and personally dictated by me. I have reviewed the chart and agree that the record accurately reflects my personal performance of the history, physical exam, medical decision making, and the department course for this patient. I have also personally directed, reviewed, and agree with the discharge instructions and disposition. Disposition/Present on Arrival - Present on Arrival Any Indicators Present on Arrival: No History of DVT/PE: No History of Uncontrolled Diabetes: No Urinary Catheter: No History of Decub. Ulcer: No History Surgical Site Infection Following: CABG - Mediastinitis, None - Disposition Have Diagnosis and Disposition been Completed?: Yes Diagnosis: Hypoglycemia Disposition Time: 16:53 Patient Plan: Discharge Condition: IMPROVED Discharge Instructions (ExitCare): Low Blood Sugar, Adult (DC), Low Blood Sugar in People With Diabetes Print Language: SL[place] Additional Instructions: All medical record entries made by the Scribe were at my direction and personally dictated by me. I have reviewed the chart and agree that the record accurately reflects my personal performance of the history, physical exam, medical decision making, and the department course for this patient. I have also personally directed, reviewed, and agree with the discharge instructions and disposition. Referrals: Brian SUAREZ,Taran Kim MD [Primary Care Provider] - Follow up with primary Forms: [employer] ([place])
[2018-05-26 16:56] VITALS: BP 107/54; PULSE 84; TEMP 97.9; O2SAT 98
--- NOTE | 2018-05-26 18:38 | CARD ---
APPROVED REPORT Date of service: 05/26/2018 EKG Measurement Heart [id number] <Conclusion> Normal sinus rhythm Possible Left atrial enlargement Septal infarct, age undetermined Abnormal ECG
== END 2018-05-26 17:02 | disposition home or self-care (01) ==
LOC: ED 13:32
DX: E11.649 Type 2 diabetes mellitus with hypoglycemia without coma (principal); I25.10 Atherosclerotic heart disease of native coronary artery without angina pectoris; I10 Essential (primary) hypertension; Z95.1 Presence of aortocoronary bypass graft; Z95.5 Presence of coronary angioplasty implant and graft; Z95.0 Presence of cardiac pacemaker; Z87.891 Personal history of nicotine dependence
CPT/HCPCS: 80053; 82948; 83735; 85025; 93005; 96360; 96361; 99283; J7042

== ENCOUNTER 2018-06-12 12:01 | Inpatient (IN) | payer MEDICARE, MEDICAID ==
[2018-06-12 12:04] VITALS: BMI 22.4
--- NOTE | 2018-06-12 12:47 | ED PDOC ---
Arrival/HPI - General Chief Complaint: Medical Clearance Time Seen by Provider: 06/12/18 12:18 Historian: Family - History of Present Illness Narrative History of Present Illness (Text): 06/12/18 12:40 68 year old female, with past medical history of breast cancer, CAD s/p Quadruple CABG (8 years ago) and PCI s/p 1 stent (5 years ago), HTN, HLD, DM, and anxiety, presents to emergency department following an episode of defibril lator going off this morning, which resulted in a shock to the head. Patient's daughter reports lumpectomy of right breast yesterday at [facility]. Daughter reports defibrillator went off, and that she fell off the bed onto her face and passed out immediately after. Patient denies any fevers, chills, headache, dizziness, chest pain, shortness of breath, cough, abdominal pain, nausea, vomiting, diarrhea, back pain, neck pain, or any other complaints. Time/Duration: 1-3 hours Symptom Onset: Sudden Symptom Course: Unchanged Activities at Onset: Light Context: Home Past Medical History - Provider Review Nursing Documentation Reviewed: Yes - Past History Past History: No Previous - Infectious Disease Hx of Infectious Diseases: None - Tetanus Immunization Tetanus Immunization: Unknown - Reproductive Menopause: Yes - Cardiac Hx Cardiac Arrhythmia: Yes (defib implant) Hx [place]: Yes Hx Hypertension: Yes Hx Pacemaker: Yes - Pulmonary Hx Respiratory Disorders: No - Neurological Hx Neurological Disorder: No Hx Paralysis: No - HEENT Hx HEENT Disorder: Yes (reading glasses) Hx Cataracts: Yes (sx r eye 11/2012) - Renal Hx Renal Disorder: No - Endocrine/Metabolic Hx Endocrine Disorders: Yes Hx Diabetes Mellitus Type 2: Yes - Hematological/Oncological Hx Blood Disorders: No Hx Blood Transfusions: No Hx Blood Transfusion Reaction: No - Integumentary Hx Dermatological Disorder: No - Musculoskeletal/Rheumatological Hx Musculoskeletal Disorders: No - Gastrointestinal Hx Gastrointestinal Disorders: No - Genitourinary/Gynecological Hx Genitourinary Disorders: No - Psychiatric Hx Anxiety: Yes Hx Substance Use: No - Surgical History Hx Cardiac Catheterization: Yes (02/20/14) Hx Coronary Artery Bypass Graft: Yes Hx Coronary Stent: Yes (2007 x2) Hx Open Heart Surgery: Yes Other/Comment: R breast cyst removal 06/11/2018 - Anesthesia Hx Anesthesia: Yes Hx Anesthesia Reactions: No Hx Malignant Hyperthermia: No - Suicidal Assessment Feels Threatened In Home Enviroment: No Family/Social History - Physician Review Nursing Documentation Reviewed: Yes Family/Social History: Unknown Family HX Smoking Status: Former Smoker Hx Alcohol Use: No Hx Substance Use: No Hx Substance Use Treatment: No Allergies/Home Meds Allergies/Adverse Reactions: Allergies metoclopramide Allergy (Verified 10/13/17 05:06) SHORTNESS OF BREATH zolpidem tartrate [From Ambien] Adverse Reaction (Verified 10/13/17 05:06) anxiety Home Medications: Home Meds Medication Instructions Recorded Confirmed Aspirin [Aspir 81] 81 mg PO QAM 11/25/12 01/21/17 Clopidogrel Bisulfate [Clopidogrel] 75 mg PO QAM 11/25/12 01/21/17 Furosemide [Lasix] 40 mg PO QAM 03/13/15 01/21/17 Potassium Chloride [Klor-Con 10] 10 meq PO QAM 03/13/15 01/21/17 Carvedilol [Coreg] 12.5 mg PO QPM 11/17/15 01/21/17 Digoxin [Digitek] 125 mcg PO DAILY 11/17/15 01/21/17 Enalapril Maleate [Vasotec] 5 mg PO QAM 11/17/15 01/21/17 Glipizide [Glipizide Xl] 10 mg PO BID 11/17/15 01/21/17 Omeprazole [Prilosec] 40 mg PO QAM 11/17/15 01/21/17 Pravastatin Sodium [Pravachol] 40 mg PO QPM 11/17/15 01/21/17 Sitagliptin Phos/Metformin HCl 1 ter PO BID 11/17/15 01/21/17 [Janumet Xr 50-1,000 mg Tablet] Tramadol HCl [Ultram] 50 mg PO BID PRN 11/17/15 01/21/17 Gabapentin [Neurontin] 100 mg PO BID 01/24/16 01/21/17 Repaglinide 1 mg PO DAILY 11/06/16 01/21/17 Valacyclovir HCl [Valtrex] 1 tab PO TID 01/21/17 01/21/17 Review of Systems - Physician Review All systems were reviewed & negative as marked: Yes - Review of Systems Respiratory: absent: SOB, Cough, Wheezing Cardiovascular: absent: Chest Pain, Edema Gastrointestinal: absent: Abdominal Pain Genitourinary Female: absent: Frequency, Hematuria, Urine Output Changes Musculoskeletal: absent: Back Pain, Neck Pain Skin: absent: Rash Neurological: Other (shock to head ). absent: Dizziness Physical Exam Vital Signs Reviewed: Yes Vital Signs Temp Pulse Resp BP Pulse Ox 06/12/18 12:01 98.1 F 88 18 111/66 98 Temperature: Afebrile Blood Pressure: Normal Pulse: Regular Respiratory Rate: Normal Appearance: Positive for: Well-Appearing, Non-Toxic, Comfortable Pain Distress: None Mental Status: Positive for: Alert and Oriented X 3 - Systems Exam Head: Present: Atraumatic, Normocephalic Pupils: Present: PERRL Extroacular Muscles: Present: EOMI Conjunctiva: Present: Normal Mouth: Present: Moist Mucous Membranes Neck: Present: Normal Range of Motion Respiratory/Chest: Present: Clear to Auscultation, Good Air Exchange. No: Respiratory Distress, Accessory Muscle Use Cardiovascular: Present: Regular Rate and Rhythm, Normal S1, S2. No: Murmurs Abdomen: No: Tenderness, Distention, Peritoneal Signs Breast/Axillary: Present: Other (surgical wound in right breast, inferior to nipple, wound intact ) Back: Present: Normal Inspection Upper Extremity: Present: Normal Inspection. No: Cyanosis, Edema Lower Extremity: Present: Normal Inspection. No: Edema Neurological: Present: GCS=15, CN II-XII Intact, Speech Normal Skin: Present: Warm, Dry, Normal Color. No: Rashes Psychiatric: Present: Alert, Oriented x 3, Normal Insight, Normal Concentration Medical Decision Making ED Course and Treatment: 06/12/18 12:57 Impression: 68 year old female presents to emergency department for shock in head when defibrillator went off this morning. Plan: -- EKG -- Labs -- Chest x-ray -- Urinalysis -- Reassess and disposition Prior Visits: Notes and results from previous visits were reviewed. Progress Notes: 06/12/18 12:58 EKG: Ordered, reviewed, and independently interpreted the EKG. Rate : 90 BPM Rhythm : NSR Interpretation : No ST-segment elevations or depressions, normal intervals, normal axis, non specific T wave changes Comparison : No change from 05/26/2018. 06/12/18 13:55 [place] being faxed over, to be read by . 06/12/18 13:59 Chest x-ray, reviewed by radiologist shows: IMPRESSION: No evidence of acute pulmonary disease. 06/12/18 14:53 Case discussed with patient, who is aware and agrees with plan. accepts patient into service and requests for cardiology. 06/12/18 14:57 Digitek level reported to be less than 0.4. Patient informs she has not been taking Digitek for the past week. - RAD Interpretation Radiology Orders: 06/12/18 12:21 CHEST TWO VIEWS (PA/LAT) [RAD] Stat - Scribe Statement The provider has reviewed the documentation as recorded by the Scribe Genie Yanez All medical record entries made by the Scribe were at my direction and personally dictated by me. I have reviewed the chart and agree that the record accurately reflects my personal performance of the history, physical exam, medical decision making, and the department course for this patient. I have also personally directed, reviewed, and agree with the discharge instructions and disposition. Disposition/Present on Arrival - Present on Arrival History of DVT/PE: No History of Uncontrolled Diabetes: No Urinary Catheter: No History of Decub. Ulcer: No History Surgical Site Infection Following: CABG - Mediastinitis, None - Disposition Referrals: Waylon Garcia Jr., MD [Primary Care Provider] - Follow up with primary Forms: [employer] ([place])
[2018-06-12 12:56] LABS: BASO # 0.01 K/mm3 (0.0-2.0); BASO % 0.1 % (0.0-3.0); HEMOGLOBIN 10.2 g/dL (12.0-16.0); LYMPH # 2.2 (1.2-3.4); LYMPH % 23.2 % (22.0-35.0); MEAN CORPUSCULAR HEMOGLOBIN 28.3 pg (25.0-35.0); MEAN CORPUSCULAR HGB CONC 32.5 g/dl (31.0-37.0); MEAN PLATELET VOLUME 9.5 fl (7.0-11.0); MONO # 0.7 (0.1-0.6); MONO % 7.3 % (1.0-6.0); RBC 3.61 10^6/uL (3.5-6.1); RED CELL DISTRIBUTION WIDTH 13.2 % (11.5-14.5); WHITE BLOOD COUNT 9.5 10^3/uL (4.5-11.0)
[2018-06-12 13:02] LABS: INR 1.08; PARTIAL THROMBOPLASTIN TIME 25.2 Seconds (26.9-38.3); PROTHROMBIN TIME 12.2 SECONDS (9.4-12.5)
[2018-06-12 13:12] LABS: ALB/GLOB RATIO 1.6 (1.1-1.8); ALBUMIN 4.1 g/dL (3.0-4.8); ALT/SGPT 24 U/L (7-56); AST/SGOT 16 U/L (14-36); BLOOD UREA NITROGEN 17 mg/dL (7-21); CALCIUM 9.6 mg/dL (8.4-10.5); GFR NON-AFRICAN AMERICAN > 60
[2018-06-12 13:13] LABS: B-TYPE NATRIURETIC PEPTIDE 1570 pg/mL (0-450); TROPONIN I < 0.01 ng/mL
--- NOTE | 2018-06-12 13:40 | RAD ---
Date of service: 06/12/2018 HISTORY: syncope/defib COMPARISON: Comparison is made with 10/13/2017 TECHNIQUE: Chest PA and lateral FINDINGS: LUNGS: No evidence of new infiltrate or consolidation in the lungs. PLEURA: No significant pleural effusion identified. No pneumothorax apparent. CARDIOVASCULAR: No aortic atherosclerotic calcification present. The cardiac silhouette is upper normal/mildly enlarged. Again seen is left-sided pacemaker in place. No pulmonary vascular congestion. OSSEOUS STRUCTURES: No significant abnormalities. VISUALIZED UPPER ABDOMEN: Normal. OTHER FINDINGS: None. IMPRESSION: No evidence of acute pulmonary disease.
[2018-06-12] MEDS ORDERED: Dextrose 50% SYRINGE Inj (50 ml) IV PRN (15:07)
[2018-06-12] MEDS: Digoxin 125 mcg (0.125 mg) Tab PO SCH (15:50)
[2018-06-12] MEDS: Enoxaparin 40 mg Syringe SC SCH (15:51)
[2018-06-12] MEDS: Insulin Lispro (humaLOG) MEDIUM Coverage SC SCH (16:14)
--- NOTE | 2018-06-12 16:26 | CT ---
Date of service: 06/12/2018 PROCEDURE: CT HEAD WITHOUT CONTRAST. HISTORY: SYNCOPE COMPARISON: Comparison is made with 07/15/2017 TECHNIQUE: Axial computed tomography images were obtained through the head/brain without intravenous contrast. Radiation dose: Total exam DLP = 902.9 mGy-cm. This CT exam was performed using one or more of the following dose reduction techniques: Automated exposure control, adjustment of the mA and/or kV according to patient size, and/or use of iterative reconstruction technique. FINDINGS: HEMORRHAGE: No intracranial hemorrhage. BRAIN: No mass effect or edema. There is [id number] white matter chronic ischemic disease again noted. VENTRICLES: Unremarkable. No hydrocephalus. CALVARIUM: Unremarkable. PARANASAL SINUSES: Unremarkable as visualized. No significant inflammatory changes. MASTOID AIR CELLS: Unremarkable as visualized. No inflammatory changes. OTHER FINDINGS: None. IMPRESSION: No evidence of acute intracranial hemorrhage intracranial collection mass effect or midline shift.
[2018-06-12 16:58] LABS: HDL CHOLESTEROL 50 mg/dL (29-60)
[2018-06-12 17:09] LABS: LDL CHOLESTEROL 115 mg/dL (0-129)
[2018-06-12 17:12] LABS: TROPONIN I 0.01 ng/mL
[2018-06-12] MEDS ORDERED: Non Formulary Medication (Pravastatin Sodium [Pravachol] 40 MG) PO SCH (18:00)
[2018-06-12] MEDS: Omega-3-Acid Ethyl Esters 1 GM Cap PO SCH (18:05)
[2018-06-12 19:49] LABS: TROPONIN I 0.01 ng/mL
[2018-06-12 20:49] LABS: IRON 66 ug/dL (45-180)
[2018-06-12 20:58] LABS: % IRON SATURATION 20 % (20-55); TOTAL IRON BINDING CAPACITY 325 ug/dL (265-497)
[2018-06-12 21:21] LABS: FREE T4 1.13 ng/dL (0.78-2.19); T4 9.3 ug/dL (5.5-11.0)
[2018-06-12 21:34] LABS: T3 1.01 ng/mL (0.97-1.69)
--- NOTE | 2018-06-12 21:45 | HP ---
DATE OF EXAM: 06/12/2018 HISTORY OF PRESENT ILLNESS: The patient is a 68-year-old female most of the history is obtained through the patient's daughter, the patient came to the emergency room around 12 noon this morning as a walk-in. According to the patient's daughter, the patient had a right breast lumpectomy at [facility] yesterday at [place]. The patient was discharged at 07:00 p.m. yesterday and the patient this morning while the patient was asleep, the patient got a defibrillator shock and then passed out. The patient complained of jolt feeling in the head. The patient's daughter denies any history of tongue biting. Denies any history of seizure. Denies any history of bowel or bladder incontinence. REVIEW OF SYSTEMS: A 14-system review was done, pertinent positive negative dictated above. CODE STATUS: Full code. LIVING WILL ADVANCE DIRECTIVE: None. Height is 5 feet 1 inch. Weight is 119. BMI is 22. ALLERGIES: METOCLOPRAMIDE AND ZOLPIDEM. SOCIAL HISTORY: Former smoker. Denies substance abuse. Denies alcohol use. Denies drug use. Denies communicable transmissible disease. OCCUPATIONAL HISTORY: Disabled. MENSTRUAL HISTORY: Postmenopausal. FAMILY HISTORY: Positive for diabetes and hypertension. PAST MEDICAL AND SURGICAL HISTORY: History of coronary artery disease, history of coronary angioplasty, history of coronary artery bypass graft, history of cardiac arrest, history of ventricular tachycardia and ventricular fibrillation arrest, history of AICD implant, history of right breast carcinoma, status post right lumpectomy, history of defibrillator implant for cardiac arrhythmia, history of stent placement, history of hyperlipidemia, hypertension, history of type 2 diabetes mellitus, history of cataract, history of anxiety disorder, history of cardiomyopathy, history of right breast cyst removal, history of anemia diagnosed in 2017, history of non-insulin requiring diabetes mellitus, history of severe hypertriglyceridemia, history of proteinuria, microscopic hematuria, pyuria, bacteriuria, history of urinary tract infection secondary to Klebsiella pneumoniae, history of A+ blood type, history of heterogeneous dense breast, history of right breast biopsy, history of possible ischemic dilated cardiomyopathy with left ventricular ejection fraction of 29%, history of colitis, history of fibroid uterus, history of left renal proteinaceous versus hemorrhagic cyst, history of diverticulosis, and history of degenerative joint disease of the spine. Past medical history is significant for history of dilated cardiomyopathy, family history of premature coronary artery disease, history of multivessel coronary artery disease, and history of triple-vessel coronary artery disease. The patient's past medical history is significant for history of right breast in situ invasive lobular carcinoma, history of descending colon adenomatous polyp, history of H. pylori gastritis, and history of dilated ischemic cardiomyopathy with [id number] apical anterior wall hypokinesis. The patient's past medical history is significant for history of descending colon polyp, history of diverticulosis, and history of colonoscopy done in 2016. Past medical history is significant for history of unstable angina, history of angioplasty stent placement, history of oral abscess diagnosed in 2009, history of right dental abscess, history of atherosclerotic heart disease, and history of diabetic neuropathy. PHYSICAL EXAMINATION: GENERAL: The patient was seen and examined in room #13 in the emergency room. Most of the history is obtained through the patient's daughter who was present at the bedside. The patient is lying in the bed comfortable, chewing gum, and does not appear to be in any distress. VITAL SIGNS: T-max 98.1, telemetry sinus rhythm, heart rate 88, blood pressure 111/66, respirations 18, and O2 sat 98%. HEENT: Head examination; normocephalic and atraumatic. HEENT examination shows pinkish pale conjunctivae. Dry oral mucosa. NECK: No neck rigidity. CHEST: Kyphosis. Positive median sternotomy surgical scar. Positive left upper chest AICD. Positive median sternotomy surgical scar noted. ABDOMEN: Soft. Positive bowel sounds. No palpable hepatosplenomegaly. GENITALIA: Female. RECTAL: Deferred. EXTREMITIES: Shows no pitting edema. No calf tenderness. No Homans' sign. NEUROLOGIC: The patient is alert, awake, responsive, and is able to move upper and lower extremity without assistance. Gait examination not tested. Grossly without any deficit. VASCULAR: Palpable pulses. MUSCULOSKELETAL: Shows a body mass index of 22.5. PSYCHIATRIC: Negative. DIAGNOSTIC DATA: Abnormal labs are hemoglobin and hematocrit 10.2 and 31.4. CMP, LFTs, and cardiac enzymes negative. ProBNP is 1570. Digoxin level 0.4.. EKG shows sinus rhythm, conduction delay is noted. Questionable age indeterminate anteroseptal infarct with nonspecific ST changes. Chest x-ray was reviewed, which shows cardiomegaly, positive defibrillator implant, and median sternotomy surgical scar. The patient was seen in the emergency room by Dr. Rosales. The patient's [employer] rep was called for evaluation of the AICD. During this interim when the patient received the defibrillator shock, the patient's diabetes nurse was contacted by the patient's family who advised the patient's family to bring the patient to the emergency room for evaluation and in the emergency room, the patient had an AICD evaluation by the [employer] rep. AICD interrogation did show an episode of VT and VF arrest, which was successful defibrillator by the AICD. IMPRESSION AND PLAN: 1. Status post ventricular tachycardia and ventricular fibrillation arrest, status post automatic implantable cardioverter-defibrillator shock. 2. Syncope with loss of unwitnessed syncope. 3. Normocytic anemia. 4. Elevated ProBNP secondary to dilated ischemic cardiomyopathy. 5. Subtherapeutic digoxin level. 6. Status post coronary artery bypass graft, history of ischemic dilated cardiomyopathy, history of coronary artery disease, and history of coronary angioplasty. 7. History of automatic implantable cardioverter-defibrillator implant. 8. History of hypertension. 9. Questionable age indeterminate septal infarct. 10. History of type 2 atd-ozhexoi-cakengakp diabetes mellitus. 11. History of diabetic neuropathy. 12. History of hyperlipidemia. Plan at this time, the patient will be admitted to telemetry. Cardiology consultation requested. Anemia workup ordered. Repeat labs, repeat cardiac enzyme, repeat digoxin level, repeat troponin, and repeat EKG ordered. Cardiology consultation ordered. Diabetic education evaluation ordered. TCU evaluation ordered. The patient will be resumed on Coreg 12.5 mg daily, digoxin 0.125 mg daily, aspirin 81 mg daily, Humalog medium dose sliding scale coverage, K-Dur 10 mEq daily, Lasix 40 mg daily, Lipitor 40 mg daily, Lovenox 40 mg subcutaneously daily, Neurontin 100 mg twice a day, Plavix 75 mg daily, Protonix 40 mg daily, Tylenol 650 mg p.o. suppository every 6 hours p.r.n., Ultram 50 mg b.i.d. p.r.n., Zestril, Vasotec will be resumed, and Zofran 4 IV every [address] head results are pending. Oxygen 2 L ordered Incentive spirometry. Repeat EKG ordered. Diabetic diet ordered, head of the bed at 30 degrees, out of bed, ARACELI stockings, and SCDs ordered. The patient's home medications were reviewed, which are aspirin 81 mg p.o. daily, Plavix 75 mg daily, Coreg 12.5 mg daily, digoxin 0.125 mg daily, Flagyl 500 mg 3 times a day, which is an old prescription, glipizide 10 mg twice a day, Janumet twice a day, K-Dur 10 mEq daily, Lasix 40 mg daily, Neurontin 100 mg twice a day, Pravachol 40 mg daily, Prilosec 40 mg daily, repaglinide 1 mg daily, Tylenol with Codeine 3 times a day p.r.n., Ultram 50 mg b.i.d. p.r.n., Valtrex 1000 mg 3 times a day, Vasotec 5 mg daily, Zofran 4 mg every 6 hours p.r.n., and Zyrtec p.r.n. 10 mg, those are the home medications at present. The patient was seen in the emergency room in bed #13. The patient's detailed history was done. The patient was examined in bed 13 with the patient's family including the daughter present at bedside who was the main source of the patient's medical history and details. The patient and the patient's family was advised about the need for hospitalization, need for further diagnostic therapeutic intervention, need for further evaluation by Cardiology, and need for further diagnostic therapeutic intervention and need for further testing. All was discussed and explained to the patient and the patient's daughter at length and all questions concerned answered. At present, the patient is awaiting for a telemetry bed. The patient's further management will be dependent upon the patient's clinical condition, hemodynamic status and as per the patient response to therapeutic intervention, as per the patient's diagnostic test results, and as per recommendation by all the physician involved in the care of the patient. Dictated and electronically signed, not read. Mo Segal MD
[2018-06-12] MEDS ORDERED: Influenza Vaccine 60 mcg/0.5 mL SYR (4YR UP) IM ONE (21:58)
[2018-06-12] MEDS ORDERED: Pneumococcal 23-Valent Vaccine IM ONE (21:58)
--- NOTE | 2018-06-12 22:22 | CARD ---
APPROVED REPORT Date of service: 06/12/2018 EKG Measurement Heart [id number] MD [id number] <Conclusion> Normal sinus rhythm Possible Left atrial enlargement Intraventricular conduction delay of LBBB type. QS comples V1-2. Cannot exclude old ASMI Diffuse NDSTT abnormalities CCR Abnormal ECG
[2018-06-12 23:52] LABS: TROPONIN I < 0.01 ng/mL
[2018-06-13] MEDS: Pantoprazole 40 mg EC Tab PO SCH (05:25)
[2018-06-13 06:21] LABS: BASO # 0.02 K/mm3 (0.0-2.0); BASO % 0.3 % (0.0-3.0); EOS # 0.1 (0.0-0.7); HEMOGLOBIN 10.3 g/dL (12.0-16.0); LYMPH # 3.7 (1.2-3.4); LYMPH % 51.5 % (22.0-35.0); MEAN CELL VOLUME 87.8 fl (80.0-105.0); MEAN CORPUSCULAR HEMOGLOBIN 27.8 pg (25.0-35.0); MEAN CORPUSCULAR HGB CONC 31.7 g/dl (31.0-37.0); MEAN PLATELET VOLUME 9.3 fl (7.0-11.0); MONO # 0.4 (0.1-0.6); MONO % 5.3 % (1.0-6.0); RBC 3.7 10^6/uL (3.5-6.1); RED CELL DISTRIBUTION WIDTH 13.4 % (11.5-14.5); WHITE BLOOD COUNT 7.2 10^3/uL (4.5-11.0)
[2018-06-13 06:38] LABS: ALB/GLOB RATIO 1.4 (1.1-1.8); ALT/SGPT 24 U/L (7-56); AST/SGOT 24 U/L (14-36); BILIRUBIN,DIRECT 0.1 mg/dL (0.0-0.4); BLOOD UREA NITROGEN 17 mg/dL (7-21); CALCIUM 9.4 mg/dL (8.4-10.5); GFR NON-AFRICAN AMERICAN > 60
[2018-06-13 06:39] VITALS: O2SAT 99
[2018-06-13 06:42] LABS: TROPONIN I < 0.01 ng/mL
[2018-06-13] MEDS: Insulin Lispro (humaLOG) MEDIUM Coverage SC SCH ×3 (08:53→18:01)
[2018-06-13] MEDS: Enoxaparin 40 mg Syringe SC SCH (09:27)
[2018-06-13] MEDS: Omega-3-Acid Ethyl Esters 1 GM Cap PO SCH ×2 (09:29→18:02)
[2018-06-13] MEDS: Potassium Chloride 10 mEq ER Tab PO SCH (09:30)
[2018-06-13] MEDS: Digoxin 125 mcg (0.125 mg) Tab PO SCH (09:30)
[2018-06-13 09:32] VITALS: PULSE 70
[2018-06-13] MEDS ORDERED: OMEPRAZOLE 40 MG PO SCH (10:00)
--- NOTE | 2018-06-13 10:02 | CP.PCM.CON ---
History of Present Illness - History of Present Illness History of Present Illness: Awake, alert, no distress Reason for consultation: Cardiac evaluation of AICD , firing of defibrillator, AICD interrogated, shocked for VT/Vfib Brief history of present illness: A 68 year old female who came in to the ER due to AICD firing. She was in bed when she felt the AICD going on and felt shocked on her head, fell out on bed and passed out. History of coronary artery disease, post CABG 04/01/2007, post PTCA 07/27/2013,hypertension, hyperlipidemia, diabetes, breast cancer, post lumpectomy,anxiety. AICD interrogated, shocked for VT/V-fib. Seen and examined by me and Dr. Guevara Review of Systems - Review of Systems All systems: reviewed and no additional remarkable complaints except Review of Systems: as per HPI Past Patient History - Infectious Disease Hx of Infectious Diseases: None - Tetanus Immunizations Tetanus Immunization: Unknown - Past Medical History & Family History Past Medical History?: Yes - Past Social History Smoking Status: Former Smoker - CARDIAC Hx Cardiac Disorders: Yes (cad, mi,) Hx Cardia Arrhythmia: Yes (defib implant) Hx Hypercholesterolemia: Yes Hx Hypertension: Yes Hx Internal Defibrillator: Yes (07/2017) Other/Comment: open heart quadruple bypass 2006 - PULMONARY Hx Respiratory Disorders: No - NEUROLOGICAL Hx Neurological Disorder: Yes Other/Comment: neuropathy, pins & needles both feet, tightness to right hip and r thigh worse at night can't sleep, - HEENT Hx HEENT Problems: Yes (reading glasses) Hx Cataracts: Yes (sx r eye 11/2012) - RENAL Hx Chronic Kidney Disease: No - ENDOCRINE/METABOLIC Hx Endocrine Disorders: Yes Hx Diabetes Mellitus Type 2: Yes - HEMATOLOGICAL/ONCOLOGICAL Hx Blood Disorders: No - INTEGUMENTARY Hx Dermatological Problems: No Other/Comment: r breast lumpectomy 06/11/18 at [facility], pt will get results in 2 weeks, dressing intact - MUSCULOSKELETAL/RHEUMATOLOGICAL Hx Falls: Yes (fell to floor after shocked by defibrillator) - GASTROINTESTINAL Hx Gastrointestinal Disorders: No - GENITOURINARY/GYNECOLOGICAL Hx Genitourinary Disorders: No - PSYCHIATRIC Hx Substance Use: No - SURGICAL HISTORY Hx Surgeries: Yes Hx Cardiac Catheterization: Yes (02/20/14) Hx Coronary Stent: Yes (2007 x2) Hx Open Heart Surgery: Yes (quadruple) Other/Comment: R breast cyst removal 06/11/2018 - ANESTHESIA Hx Anesthesia: Yes Hx Anesthesia Reactions: No Hx Malignant Hyperthermia: No Meds Allergies/Adverse Reactions: Allergies Allergy/AdvReac Type Severity Reaction Status Date / Time metoclopramide Allergy SHORTNESS Verified 10/13/17 05:06 OF BREATH zolpidem tartrate AdvReac anxiety Verified 10/13/17 05:06 [From Ambien] - Medications Medications: Current Medications Acetaminophen (Tylenol 325mg Tab) 650 mg PO Q6 PRN PRN Reason: TEMP>=99.5F Last Admin: 06/12/18 17:32 Dose: 650 mg Acetaminophen (Tylenol 650 Mg Supp) 650 mg RC Q6H PRN PRN Reason: TEMP>=99.5F Aspirin (Ecotrin) 81 mg PO QAM [facility] Last Admin: 06/13/18 09:30 Dose: Not Given Atorvastatin Calcium (Lipitor) 40 mg PO DIN [facility] Last Admin: 06/12/18 17:04 Dose: 40 mg Carvedilol (Coreg) 12.5 mg PO QPM [facility] Last Admin: 06/12/18 17:04 Dose: 12.5 mg Clopidogrel Bisulfate (Plavix) 75 mg PO QAM [facility] Last Admin: 06/13/18 09:30 Dose: Not Given Dextrose (Dextrose 50% Inj) 0 ml IV STAT PRN; Protocol PRN Reason: Hypoglycemia Protocol Digoxin (Digoxin) 0.125 mg PO DAILY [facility] Last Admin: 06/13/18 09:30 Dose: 0.125 mg Enoxaparin Sodium (Lovenox) 40 mg SC DAILY [facility]; Protocol Last Admin: 06/13/18 09:27 Dose: Not Given Furosemide (Lasix) 20 mg IVP Q12 [facility] Last Admin: 06/13/18 09:27 Dose: 20 mg Gabapentin (Neurontin) 100 mg PO BID [facility]; Protocol Last Admin: 06/13/18 09:30 Dose: 100 mg Dextrose (Dextrose 5% In Water 1000 Ml) 1,000 mls @ 0 mls/hr IV .Q0M PRN; Roman col PRN Reason: Hypoglycemia Protocol Insulin Human Lispro (Humalog Med) 0 units SC AC [facility]; Protocol Last Admin: 06/13/18 08:53 Dose: Not Given Lisinopril (Zestril) 5 mg PO QAM [facility] Last Admin: 06/13/18 09:29 Dose: 5 mg Ndeui-3-Eftg Ethyl Esters (Lovaza) 1 gm PO BID [facility] Last Admin: 06/13/18 09:29 Dose: 1 gm Ondansetron HCl (Zofran Inj) 4 mg IVP Q4H PRN PRN Reason: Nausea/Vomiting Pantoprazole Sodium (Protonix Ec Tab) 40 mg PO 0600 [facility] Last Admin: 06/13/18 05:25 Dose: 40 mg Potassium Chloride (Klor-Con 10) 10 meq PO QAM [facility] Last Admin: 06/13/18 09:30 Dose: 10 meq Tramadol HCl (Ultram) 50 mg PO BID PRN PRN Reason: Pain, moderate (4-7) Last Admin: 06/12/18 21:29 Dose: 50 mg Physical Exam - Constitutional Appears: Non-toxic, No Acute Distress - Head Exam Head Exam: NORMAL INSPECTION, NORMOCEPHALIC - Eye Exam Eye Exam: Normal appearance Pupil Exam: NORMAL ACCOMODATION - ENT Exam ENT Exam: Mucous Membranes Moist, Normal Exam - Respiratory Exam Respiratory Exam: Clear to Auscultation Bilateral, NORMAL BREATHING PATTERN - Cardiovascular Exam Cardiovascular Exam: REGULAR RHYTHM, +S1, +S2 Additional comments: AICD/PPM - GI/Abdominal Exam GI & Abdominal Exam: Normal Bowel Sounds, Soft - Rectal Exam Rectal Exam: NORMAL INSPECTION - Extremities Exam Extremities exam: Positive for: full ROM, normal capillary refill - Neurological Exam Neurological exam: Alert, Oriented x3 - Psychiatric Exam Psychiatric exam: Normal Affect - Skin Skin Exam: Dry, Normal Color, Warm Results - Vital Signs Recent Vital Signs: Last Vital Signs Temp 97.6 F 06/13/18 06:00 Pulse 70 06/13/18 09:29 Resp 20 06/13/18 06:00 BP 120/69 06/13/18 09:29 Pulse Ox 99 06/13/18 06:00 - Labs Result Diagrams: 06/13/18 05:00 06/13/18 05:00 Labs: Laboratory Results - last 24 hr 06/12/18 06/12/18 06/12/18 12:30 12:30 12:30 WBC 9.5 RBC 3.61 Hgb 10.2 L Hct 31.4 L MCV 87.0 MCH 28.3 MCHC 32.5 RDW 13.2 Plt Count 225 MPV 9.5 Neut % (Auto) 69.4 H Lymph % (Auto) 23.2 [place] % (Auto) 7.3 H Eos % (Auto) 0.0 L Baso % (Auto) 0.1 Lymph # (Auto) 2.2 [place] # (Auto) 0.7 H Eos # (Auto) 0.0 Baso # (Auto) 0.01 Absolute Neuts (auto) 6.60 H Retic Count PT 12.2 INR 1.08 APTT 25.2 L Sodium 136 Potassium 4.5 Chloride 101 Carbon Dioxide 27 Anion Gap 12 BUN 17 Creatinine 0.8 Est GFR ( Amer) > 60 Est GFR (Non-Af Amer) > 60 Random Glucose 101 Calcium 9.6 Phosphorus Magnesium 1.8 Iron TIBC % Saturation Total Bilirubin 0.5 Direct Bilirubin AST 16 ALT 24 Alkaline Phosphatase 54 Lactate Dehydrogenase 372 Total Creatine Kinase 33 L Troponin I < 0.01 NT-Pro-B Natriuret Pep 1570 H Total Protein 6.7 Albumin 4.1 Globulin 2.6 Albumin/Globulin Ratio 1.6 Triglycerides Cholesterol LDL Cholesterol Direct HDL Cholesterol Free T4 Thyroxine (T4) Total T3 TSH 3rd Generation Digoxin 06/12/18 06/12/18 06/12/18 12:30 16:44 16:44 WBC RBC Hgb Hct MCV MCH MCHC RDW Plt Count MPV Neut % (Auto) Lymph % (Auto) [place] % (Auto) Eos % (Auto) Baso % (Auto) Lymph # (Auto) [place] # (Auto) Eos # (Auto) Baso # (Auto) Absolute Neuts (auto) Retic Count 0.91 PT INR APTT Sodium Potassium Chloride Carbon Dioxide Anion Gap BUN Creatinine Est GFR ( Amer) Est GFR (Non-Af Amer) Random Glucose Calcium Phosphorus Magnesium Iron TIBC % Saturation Total Bilirubin Direct Bilirubin AST ALT Alkaline Phosphatase Lactate Dehydrogenase Total Creatine Kinase 30 L Troponin I 0.01 NT-Pro-B Natriuret Pep Total Protein Albumin Globulin Albumin/Globulin Ratio Triglycerides 216 H Cholesterol 215 H LDL Cholesterol Direct 115 HDL Cholesterol 50 Free T4 Thyroxine (T4) Total T3 TSH 3rd Generation Digoxin < 0.4 L 06/12/18 06/12/18 06/12/18 19:20 20:00 20:00 WBC RBC Hgb Hct MCV MCH MCHC RDW Plt Count MPV Neut % (Auto) Lymph % (Auto) [place] % (Auto) Eos % (Auto) Baso % (Auto) Lymph # (Auto) [place] # (Auto) Eos # (Auto) Baso # (Auto) Absolute Neuts (auto) Retic Count PT INR APTT Sodium Potassium Chloride Carbon Dioxide Anion Gap BUN Creatinine Est GFR ( Amer) Est GFR (Non-Af Amer) Random Glucose Calcium Phosphorus Magnesium Iron 66 TIBC 325 % Saturation 20 Total Bilirubin Direct Bilirubin AST ALT Alkaline Phosphatase Lactate Dehydrogenase Total Creatine Kinase 33 L Troponin I 0.01 NT-Pro-B Natriuret Pep Total Protein Albumin Globulin Albumin/Globulin Ratio Triglycerides Cholesterol LDL Cholesterol Direct HDL Cholesterol Free T4 1.13 Thyroxine (T4) 9.3 Total T3 1.01 TSH 3rd Generation 0.56 Digoxin 06/12/18 06/13/18 06/13/18 23:20 05:00 05:00 WBC 7.2 D RBC 3.70 Hgb 10.3 L Hct 32.5 L MCV 87.8 MCH 27.8 MCHC 31.7 RDW 13.4 Plt Count 210 MPV 9.3 Neut % (Auto) 41.9 L Lymph % (Auto) 51.5 H [place] % (Auto) 5.3 Eos % (Auto) 1.0 L Baso % (Auto) 0.3 Lymph # (Auto) 3.7 H [place] # (Auto) 0.4 Eos # (Auto) 0.1 Baso # (Auto) 0.02 Absolute Neuts (auto) 3.00 Retic Count PT INR APTT Sodium 139 Potassium 4.2 Chloride 103 Carbon Dioxide 29 Anion Gap 12 BUN 17 Creatinine 0.8 Est GFR ( Amer) > 60 Est GFR (Non-Af Amer) > 60 Random Glucose 117 H Calcium 9.4 Phosphorus 3.4 Magnesium 1.7 Iron TIBC % Saturation Total Bilirubin 0.4 Direct Bilirubin 0.1 AST 24 ALT 24 Alkaline Phosphatase 53 Lactate Dehydrogenase Total Creatine Kinase 33 L 25 L Troponin I < 0.01 < 0.01 NT-Pro-B Natriuret Pep Total Protein 6.9 Albumin 4.0 Globulin 2.8 Albumin/Globulin Ratio 1.4 Triglycerides Cholesterol LDL Cholesterol Direct HDL Cholesterol Free T4 Thyroxine (T4) Total T3 TSH 3rd Generation Digoxin 06/13/18 05:00 WBC RBC Hgb Hct MCV MCH MCHC RDW Plt Count MPV Neut % (Auto) Lymph % (Auto) [place] % (Auto) Eos % (Auto) Baso % (Auto) Lymph # (Auto) [place] # (Auto) Eos # (Auto) Baso # (Auto) Absolute Neuts (auto) Retic Count PT INR APTT Sodium Potassium Chloride Carbon Dioxide Anion Gap BUN Creatinine Est GFR ( Amer) Est GFR (Non-Af Amer) Random Glucose Calcium Phosphorus Magnesium Iron TIBC % Saturation Total Bilirubin Direct Bilirubin AST ALT Alkaline Phosphatase Lactate Dehydrogenase Total Creatine Kinase Troponin I NT-Pro-B Natriuret Pep Total Protein Albumin Globulin Albumin/Globulin Ratio Triglycerides Cholesterol LDL Cholesterol Direct HDL Cholesterol Free T4 Thyroxine (T4) Total T3 TSH 3rd Generation Digoxin < 0.4 L Assessment & Plan - Assessment and Plan (Free Text) Assessment: A 68 year old female who came in to the ER due to AICD firing. She was in bed when she felt the AICD going on and felt shocked on her head, fell out on bed and passed out. History of coronary artery disease, post CABG 04/01/2007, post PTCA 02/20/2014,hypertension, hyperlipidemia, diabetes, breast cancer, post lumpectomy,anxiety. Patient was seen in the office 2 months ago for surgical clearance for lumpectomy . Digoxin was discontinued at that time. AICD fired and was brought to the ER. AICD interrogated, and shocked for VT/V-fib. EKG normal sinus rhythm. Will start Amiodarone 400 mg TID for 2 days and then decrease to 200 mg daily. Stable for now. Previous Cardiac work up at [facility]: 05/02/18- Echo was done LVEF 35%, modrate to c\severe hypokinesis in the apical anterior wall, trace aortic regurgitation, trace MR. 08/2017- AICD implantation by Dr. Villalba at [facility] 06/12/2017 MUGA scan done- LVEF 29% 05/27/2016 MUGA scan-LVEF 41% 01/24/2015- MUGA scan LVEF 38% 02/20/2014- Cardiac cath done - [place] three vessel disease Patent CARPENTER to LAD Patent SVG sequential to OM1 and D1, mid D1 has 70 % stenosis not suitable for PCI Occluded SVG to RCA but RPDA is well collateralized from Circumflex, LVEF 35% Medical treatment Plan: Denies chest pain, no distress AICD interrogated and showed shocked for Vtach and Vfib EKG now NSR Will start on Amiodarone at 400 mg TID for 2 days then 200 mg daily On ASA 81 mg daily, lipitor 40 mg daily, Coreg 12.5 mg daily, Plavix 75 mg daily, Lovenox 40 mg daily, Lasix 20 mg daily, Lisinopril 5 mg daily,Potassium 10 meq daily Hold Digoxin Will monitor electrolytes Continue current treatment Continue current medications Will follow up Further recommendations during hospital course Plan and treatment discussed with Dr. Guevara Thank you Dr. Segal for the opportunity of taking care of Heather Chowdary - Date & Time Date: 06/13/18 Time: 06:20
--- NOTE | 2018-06-13 12:03 | PN ---
DATE: 06/13/2018 SUBJECTIVE: The patient is seen sitting up in room 269, bed 1. The patient is having breakfast. The patient denies anymore defibrillator shocks. The patient denies any syncopal episode. PHYSICAL EXAMINATION: VITAL SIGNS: Telemetry monitoring shows sinus rhythm; heart rate 83, 86, 89, 70; blood pressure 120/69, 126/78; respirations 20; O2 sat 99%. HEAD: Normocephalic, atraumatic. HEENT: Examination shows pinkish pale conjunctivae. Anicteric sclerae. No oropharyngeal lesion. NECK: No neck rigidity. CHEST: Kyphosis. Positive median sternotomy surgical scar. Positive left upper chest ICD. No audible crackle, rales or wheezing. CARDIOVASCULAR: S1, S2. Questionable soft systolic murmur left sternal border, right second intercostal space, left second intercostal space. ABDOMEN: Soft. Positive bowel sound. No palpable hepatosplenomegaly noted. GENITALIA: Female. RECTAL: Examination deferred. EXTREMITIES: No pitting edema. No calf tenderness. No Homans' sign. NEUROLOGIC: The patient is alert, awake, responsive. She is able to move upper and lower extremities without assistance. Gait examination is independent. VASCULAR: Examination palpable pulses. MUSCULOSKELETAL: Examination shows a body mass index of 22.5. LABORATORY DATA: On 06/13/2018, WBC 7.2, hemoglobin/hematocrit 10.3/32.5, platelet 210,000. Sodium 139, potassium 4.2, chloride 103, CO2 of 29, anion gap 12, BUN 17, creatinine 0.8, GFR greater than 60, glucose 117, calcium 9.4, phosphorus 3.4, magnesium 1.7. LFTs are normal. Troponin, four sets are negative. Digoxin level is subtherapeutic. DIAGNOSTIC DATA: The CT of the head was reviewed. EKG shows sinus rhythm. Age indeterminate septal infarct. CT head was reviewed. IMPRESSION: 1. Status post defibrillator shock. 2. Status post ventricular tachycardia, ventricular fibrillation arrest status post defibrillator shock. 3. Syncope. 4. Normocytic anemia. 5. History of hypertension. 6. Hypertriglyceridemia, hypercholesteremia with elevated LDL, hyperlipidemia. 7. Chronic microvascular ischemic disease of the brain. 8. Age indeterminate septal infarct. 9. Coronary artery disease, coronary artery bypass graft. 10. Status post automatic implantable cardioverter-defibrillator implant. 11. Dilated ischemic cardiomyopathy. 12. Diabetic neuropathy. PLAN: At this time, we are awaiting further evaluation and recommendation by Cardiology. The patient has been ordered repeat labs. Cardiology consultation ordered. Diabetic education ordered. TCU eval ordered. Current medications; Coreg 12.5 daily, digoxin 0.125 daily, Ecotrin 81 mg daily, Humalog medium dose sliding scale coverage, K-Dur 10 mEq daily, Lasix 20 mg IV every 12 hours, Lipitor 40 mg daily, Lovaza 1 g twice a day, Lovenox 40 mg subcu daily, Neurontin 100 mg twice a day, Plavix 75 mg daily, Protonix 40 mg daily, Tylenol p.r.n., Ultram 50 mg b.i.d. p.r.n., Zestril 5 mg daily, Zofran 4 mg IV every 4 hours p.r.n., incentive spirometry, oxygen 2 liters nasal cannula. Repeat EKG ordered. Echo with Doppler ordered. Heart-healthy diet ordered. Out of bed to chair, ARACELI stockings, physical therapy, occupational therapy. Stool for occult blood ordered. The patient's further management will depend upon the patient's clinical condition, hemodynamic status and as per the patient response to therapeutic intervention as per the patient's diagnostic test results and as per recommendation by all the physicians involved in the care of the patient. Mo Segal MD
[2018-06-13 13:23] LABS: FERRITIN 26.1 ng/mL
[2018-06-13 13:54] LABS: FOLATE > 20.0 ng/mL
--- NOTE | 2018-06-13 22:48 | CARD ---
APPROVED REPORT Date of service: 06/13/2018 EKG Measurement Heart [id number] <Conclusion> Normal sinus rhythm Intraventricular conduction delay QS complexesV1-2. Cannot exclude old ASMI CCR NDSTT abnormalities Abnormal ECG
[2018-06-14] MEDS: Pantoprazole 40 mg EC Tab PO SCH (05:07)
--- NOTE | 2018-06-14 07:07 | CP.PCM.PN ---
Subjective - Date & Time of Evaluation Date of Evaluation: 06/14/18 Time of Evaluation: 06:20 - Subjective Subjective: Awake, alert, no distress, lying in bed Reason for consultation: Cardiac evaluation of AICD , firing of defibrillator, AICD interrogated by [employer], shocked for VT/Vfib, converted to NSR. History of coronary artery disease, post CABG 04/01/2007, post PTCA 07/27/2013,hypertension, hyperlipidemia, diabetes, breast cancer, post lumpe ctomy,anxiety. Seen and examined by me and Dr. Guevara Objective - Vital Signs/Intake and Output Vital Signs (last 24 hours): Temp Pulse Resp BP Pulse Ox 97.6 F 63 18 102/63 99 06/14/18 06:00 06/14/18 06:00 06/14/18 06:00 06/14/18 06:00 06/14/18 06:00 Intake and Output: 06/14/18 06/14/18 06:59 18:59 Intake Total 120 Balance 120 - Medications Medications: Current Medications Acetaminophen (Tylenol 325mg Tab) 650 mg PO Q6 PRN PRN Reason: TEMP>=99.5F Last Admin: 06/12/18 17:32 Dose: 650 mg Acetaminophen (Tylenol 650 Mg Supp) 650 mg RC Q6H PRN PRN Reason: TEMP>=99.5F Amiodarone HCl (Cordarone) 400 mg PO TID [facility] Stop: 06/14/18 23:59 Last Admin: 06/13/18 18:02 Dose: 400 mg Amiodarone HCl (Cordarone) 200 mg PO DAILY [facility] Aspirin (Ecotrin) 81 mg PO QAM [facility] Last Admin: 06/13/18 09:30 Dose: Not Given Atorvastatin Calcium (Lipitor) 40 mg PO DIN [facility] Last Admin: 06/13/18 18:02 Dose: 40 mg Carvedilol (Coreg) 12.5 mg PO QPM [facility] Last Admin: 06/13/18 18:02 Dose: 12.5 mg Clopidogrel Bisulfate (Plavix) 75 mg PO QAM [facility] Last Admin: 06/13/18 09:30 Dose: Not Given Dextrose (Dextrose 50% Inj) 0 ml IV STAT PRN; Protocol PRN Reason: Hypoglycemia Protocol Enoxaparin Sodium (Lovenox) 40 mg SC DAILY [facility]; Protocol Last Admin: 06/13/18 09:27 Dose: Not Given Furosemide (Lasix) 20 mg IVP Q12 [facility] Last Admin: 06/13/18 21:12 Dose: 20 mg Gabapentin (Neurontin) 100 mg PO BID [facility]; Protocol Last Admin: 06/13/18 18:02 Dose: 100 mg Dextrose (Dextrose 5% In Water 1000 Ml) 1,000 mls @ 0 mls/hr IV .Q0M PRN; Protocol PRN Reason: Hypoglycemia Protocol Insulin Human Lispro (Humalog Med) 0 units SC [facility]; Protocol Last Admin: 06/13/18 18:01 Dose: 1 unit Lisinopril (Zestril) 5 mg PO QAM [facility] Last Admin: 06/13/18 09:29 Dose: 5 mg Msnlk-8-Drro Ethyl Esters (Lovaza) 1 gm PO BID [facility] Last Admin: 06/13/18 18:02 Dose: 1 gm Ondansetron HCl (Zofran Inj) 4 mg IVP Q4H PRN PRN Reason: Nausea/Vomiting Pantoprazole Sodium (Protonix Ec Tab) 40 mg PO 0600 [facility] Last Admin: 06/14/18 05:07 Dose: 40 mg Potassium Chloride (Klor-Con 10) 10 meq PO QAM [facility] Last Admin: 06/13/18 09:30 Dose: 10 meq Tramadol HCl (Ultram) 50 mg PO BID PRN PRN Reason: Pain, moderate (4-7) Last Admin: 06/13/18 21:13 Dose: 50 mg - Labs Labs: 06/13/18 05:00 06/13/18 05:00 PT 12.2 SECONDS (9.4-12.5) 06/12/18 12:30 INR 1.08 06/12/18 12:30 APTT 25.2 Seconds (26.9-38.3) L 06/12/18 12:30 - Constitutional Appears: Non-toxic, No Acute Distress - Head Exam Head Exam: NORMAL INSPECTION, NORMOCEPHALIC - Eye Exam Eye Exam: Normal appearance Pupil Exam: NORMAL ACCOMODATION - ENT Exam ENT Exam: Mucous Membranes Moist, Normal Exam - Respiratory Exam Respiratory Exam: Clear to Ausculation Bilateral, NORMAL BREATHING PATTERN - Cardiovascular Exam Cardiovascular Exam: REGULAR RHYTHM, +S1, +S2 Additional comments: AICD - GI/Abdominal Exam GI & Abdominal Exam: Soft, Normal Bowel Sounds - Extremities Exam Extremities Exam: Full ROM, Normal Capillary Refill - Neurological Exam Neurological Exam: Alert, Awake, Oriented x3 - Psychiatric Exam Psychiatric exam: Normal Affect, Normal Mood - Skin Skin Exam: Dry, Normal Color, Warm Assessment and Plan - Assessment and Plan (Free Text) Assessment: A 68 year old female who came in to the ER due to AICD firing. She was in bed when she felt the AICD going on and felt shocked on her head, fell out on bed and passed out. History of coronary artery disease, post CABG 04/01/2007, post PTCA 02/20/2014,hypertension, hyperlipidemia, diabetes, breast cancer, post lumpectomy,anxiety. Patient was seen in the office 2 months ago for surgical clearance for lumpectomy . Digoxin was discontinued at that time. AICD fired and was brought to the ER. AICD interrogated by [employer], shocked for VT/V-fib x 1. converted to NSR. EKG normal sinus rhythm. Amiodarone started yesterday 400 mg TID for 2 days and then decrease to 200 mg daily. Stable. No further arrythmias. No shock from AICD. Previous Cardiac work up at [facility]: 05/02/18- Echo was done LVEF 35%, moderate to c\severe hypokinesis in the apical anterior wall, trace aortic regurgitation, trace MR. 08/2017- AICD implantation by Dr. Villalba at [facility] 06/12/2017 MUGA scan done- LVEF 29% 05/27/2016 MUGA scan-LVEF 41% 01/24/2015- MUGA scan LVEF 38% 02/20/2014- Cardiac cath done - [place] three vessel disease Patent CARPENTER to LAD Patent SVG sequential to OM1 and D1, mid D1 has 70 % stenosis not suitable for PCI Occluded SVG to RCA but RPDA is well collateralized from Circumflex, LVEF 35% Medical treatment Plan: Denies chest pain, no distress, no arrythmias, no shock from AICD Telemetry NSR, rate controlled On Amiodarone at 400 mg TID for 2 days, started yesterday then 200 mg daily On ASA 81 mg daily, lipitor 40 mg daily, Coreg 12.5 mg daily, Plavix 75 mg daily, Lovenox 40 mg daily, Lasix 20 mg daily, Lisinopril 5 mg daily,Potassium 10 meq daily Amiodarone at 400 mg TID for 2 days then Amiodarone 200 mg daily Hold Digoxin Continue current treatment Continue current medications May discharge from cardiac standpoint Follow up in office in 2-3 weeks Plan and treatment discussed with Dr. Guevara
[2018-06-14 07:20] LABS: BASO # 0.03 K/mm3 (0.0-2.0); BASO % 0.4 % (0.0-3.0); EOS # 0.2 (0.0-0.7); EOS % 2.3 % (1.5-5.0); HEMOGLOBIN 11.1 g/dL (12.0-16.0); LYMPH % 44.1 % (22.0-35.0); MEAN CELL VOLUME 87.8 fl (80.0-105.0); MEAN CORPUSCULAR HEMOGLOBIN 27.5 pg (25.0-35.0); MEAN CORPUSCULAR HGB CONC 31.4 g/dl (31.0-37.0); MEAN PLATELET VOLUME 9.8 fl (7.0-11.0); MONO # 0.4 (0.1-0.6); MONO % 5.3 % (1.0-6.0); RBC 4.03 10^6/uL (3.5-6.1); RED CELL DISTRIBUTION WIDTH 13.5 % (11.5-14.5); WHITE BLOOD COUNT 6.8 10^3/uL (4.5-11.0)
[2018-06-14 08:18] LABS: ALB/GLOB RATIO 1.5 (1.1-1.8); ALBUMIN 4.1 g/dL (3.0-4.8); ALT/SGPT 25 U/L (7-56); AST/SGOT 35 U/L (14-36); BILIRUBIN,DIRECT 0.1 mg/dL (0.0-0.4); BLOOD UREA NITROGEN 21 mg/dL (7-21); CALCIUM 9.5 mg/dL (8.4-10.5); GFR NON-AFRICAN AMERICAN > 60
[2018-06-14] MEDS: Insulin Lispro (humaLOG) MEDIUM Coverage SC SCH ×2 (08:44→13:13)
[2018-06-14] MEDS: Potassium Chloride 10 mEq ER Tab PO SCH (09:44)
[2018-06-14] MEDS: Enoxaparin 40 mg Syringe SC SCH (09:44)
[2018-06-14] MEDS: Omega-3-Acid Ethyl Esters 1 GM Cap PO SCH (09:44)
--- NOTE | 2018-06-14 11:29 | CARD ---
APPROVED REPORT Date of service: 06/14/2018 EKG Measurement Heart [id number] [id number] <Conclusion> Normal sinus rhythm Septal infarct, age undetermined Abnormal ECG
[2018-06-14 12:32] VITALS: BP 110/65; PULSE 66; RESP 19; TEMP 98.2
[2018-06-14] MEDS ORDERED: Pneumococcal 23-Valent Vaccine IM ONE (13:21)
--- NOTE | 2018-06-14 15:06 | CARD ---
APPROVED REPORT Date of service: 06/14/2018 EXAM: Two-dimensional and M-mode echocardiogram with Doppler and color Doppler. INDICATION LV Function:SystolicDiastolic 2D DIMENSIONS Left Atrium (2D)4.2 (1.6-4.0cm)IVSd1.0 (0.7-1.1cm) LVDd5.6 (3.9-5.9cm)PWd1.0 (0.7-1.1cm) LVDs5.0 (2.5-4.0cm)FS (%) 10.7 % LVEF (%)23.1 (>50%) M-Mode DIMENSIONS Aortic Root3.10 (2.2-3.7cm)Aortic Cusp Exc.1.80 (1.5-2.0cm) Aortic Valve AoV Peak Kuyiwaqc837.0cm/[place] Peak GR.4mmHg Mitral Valve MV E Rrthipqy07.6cm/sMV A Gmzqbxud06.4cm/sE/A ratio1.9 TDI E/Lateral E'0.0E/Medial E'0.0 Tricuspid Valve TR Peak Xvyaockc082yx/sRAP [id number] Peak Gr.27mmHg [id number] LEFT VENTRICLE The Left Ventricle is borderline dilated. There is normal left ventricular wall thickness. The systolic function is moderately to severely impaired.EF-25% There is moderate to severe hypokinesis in the apical anterior wall. The left ventricular diastolic function is normal. Calcified mass attached to Apical Lateral wall , could he healed calcified thrombus, when copmared from previous Echo 01/2016 no change, mass present back then. There is no ventricular septal defect visualized. There is no left ventricular aneurysm. There is no mass noted in the left ventricle. RIGHT VENTRICLE The right ventricle is normal size. There is normal right ventricular wall thickness. The right ventricular systolic function is normal. There is a pacemaker lead in the right ventricle. ATRIA The left atrium is mildly dilated. The right atrium size is normal. There is a catheter/pacemaker lead seen in the right atrium. The interatrial septum is intact with no evidence for an atrial septal defect. AORTIC VALVE The aortic valve is thickened but opens well. There is trace to mild aortic regurgitation. There is no aortic valvular stenosis. There is no aortic valvular vegetation. MITRAL VALVE The mitral valve is thickened but opens well. Mitral regurgitation is mild to moderate. There is no mitral valve stenosis. There is no evidence of mitral valve prolapse. TRICUSPID VALVE The tricuspid valve leaflets are thickened , but open well. There is mild to moderate tricuspid regurgitation.RVSP-37 mmof hg. There is no tricuspid valve stenosis. There is no tricuspid valve prolapse or vegetation. PULMONIC VALVE The pulmonary valve is normal in structure. There is trace to mild pulmonic valvular regurgitation. There is no pulmonic valvular stenosis. GREAT VESSELS The aortic root is normal in size. The ascending aorta is normal in size. The pulmonary artery is normal. The IVC is normal in size and collapses >50% with inspiration. PERICARDIAL EFFUSION There is no pleural effusion. There is no pericardial effusion. <Conclusion> The Left Ventricle is borderline dilated. There is normal left ventricular wall thickness. The systolic function is moderately to severely impaired.EF-25% Calcified mass attached to Apical Lateral wall , could he healed calcified thrombus, when copmared from previous Echo 01/2016 no change, mass present back then. There is trace to mild aortic regurgitation. Mitral regurgitation is mild to moderate. There is mild to moderate tricuspid regurgitation.RVSP-37 mmof hg. There is trace to mild pulmonic valvular regurgitation. The IVC is normal in size and collapses >50% with inspiration. There is no pericardial effusion. PPOM/ AICD lead noted in RA?RV.
--- NOTE | 2018-06-14 22:36 | DS ---
HISTORY OF PRESENT ILLNESS: The patient is seen in room 269. The patient was seen sitting up in the chair. The patient is alert, awake, responsive, does not appear to be any distress. The patient denies any defibrillator shocks. The patient yesterday was noted to have a nonsustained V-tach which the patient was asymptomatic. PHYSICAL EXAMINATION: GENERAL: The patient is seen sitting up in the bed. VITAL SIGNS: T-max 97.6. The patient's telemetry shows sinus rhythm. Blood pressure 116/71, respiration 18, O2 sat 99%. HEENT: Head is normocephalic, atraumatic. HEENT examination shows pinkish pale conjunctivae. Anicteric sclerae. No oropharyngeal lesion. NECK: No neck rigidity. CHEST: Kyphosis. Positive left upper chest AICD. CARDIOVASCULAR: Shows S1, S2, regular rhythm. Positive systolic murmur at the left sternal border, right second intercostal space, left second intercostal space. No audible crackle, rales or wheezing. ABDOMEN: Soft. Positive bowel sound. No palpable hepatosplenomegaly. GENITALIA: Female. RECTAL: Deferred. EXTREMITY: Shows no pitting edema. No calf tenderness. No Homans' sign. NEUROLOGIC: The patient is alert, awake, responsive. She is able to move upper and lower extremity without assistance. Gait examination is not tested. DIAGNOSTICS: On 06/14/2018, hemoglobin and hematocrit 11.1, 35.4. Chemistry; LFTs are noted. Glucose 133. Rest of the LFTs and labs are within normal limits. FINAL IMPRESSION AND DISCHARGE DIAGNOSES: 1. Ventricular tachycardia and ventricular fibrillation. 2. Status post automatic implantable cardioverter defibrillator shock. 3. Syncope, post automatic implantable cardioverter defibrillator shock. 4. Ischemic dilated cardiomyopathy with left ventricular ejection fraction of 25%. 5. Dilated ischemic cardiomyopathy. 6. Mild pulmonary hypertension with right ventricular systolic pressure of 37 mmHg. 7. History of hypertension. 8. Mild normocytic anemia. 9. Well-controlled diabetes mellitus with hemoglobin A1c of 6.4 and fructosamine of 245. 10. Hypertriglyceridemia and hyperlipidemia with elevated LDL. 11. Status post ventricular tachycardia, ventricular fibrillation. 12. Age indeterminate septal infarct. 13. Hyperlipidemia, hypertriglyceridemia. 14. Dilated ischemic cardiomyopathy. 15. Diabetic neuropathy. PLAN: At this time, the patient has been ordered repeat labs for the morning if the patient is still in the hospital. The patient has been ordered repeat labs for the morning of the patient still in the hospital. The patient seen by Cardiology, possible discharge today. CURRENT MEDICATIONS Amiodarone 400 mg three times a day till today, then amiodarone 200 mg daily, Coreg 12.5 mg twice a day, Ecotrin 81 mg daily, Humalog medium sliding scale coverage, K-Dur 10 mEq daily, Lasix 20 mg twice a day IV, Lipitor 40 mg daily Lovaza 1 g twice a day, Lovenox 40 mg subcutaneously daily, Neurontin 100 mg twice a day, Plavix 75 mg daily, Protonix 40 mg daily Tylenol 650 mg p.o. suppository every 6 p.r.n., Ultram 50 mg b.i.d. p.r.n., Zestril 5 mg daily, Zofran 4 mg IV every 4 p.r.n. At present, the patient will be considered for discharge after the patient is cleared by Cardiology. DISCHARGE FOLLOWUP: The patient will follow up with her PMD, within 1 week. The patient's discharge medications will be as per the updated ambulatory orders and the new prescription. Time spent in the discharge process is 45 minutes. Dictated and electronically signed, not read. Mo Segal MD
[2018-06-15 11:01] LABS: GLYCOMARK(R) 13.3 mcg/mL (7.5-28.4)
== END 2018-06-14 15:37 | disposition home or self-care (01) | DRG 309 ==
LOC: ED 12:01 → ERH 14:53 → 2RNO 16:24
PROVIDERS: ADMIT Internal Medicine; ATTEND Internal Medicine
PROC: 4B02XTZ Measurement of Cardiac Defibrillator, External Approach (ICD-10-PCS; principal; 2018-06-12)
DX: I47.2 Ventricular tachycardia (principal); T82.198A Other mechanical complication of other cardiac electronic device, initial encounter; I42.0 Dilated cardiomyopathy; I49.01 Ventricular fibrillation; I25.10 Atherosclerotic heart disease of native coronary artery without angina pectoris; I25.5 Ischemic cardiomyopathy; E11.40 Type 2 diabetes mellitus with diabetic neuropathy, unspecified; D64.9 Anemia, unspecified; E78.1 Pure hyperglyceridemia; E78.00 Pure hypercholesterolemia, unspecified; I10 Essential (primary) hypertension; I25.2 Old myocardial infarction; Z95.810 Presence of automatic (implantable) cardiac defibrillator; Y84.8 Other medical procedures as the cause of abnormal reaction of the patient, or of later complication, without mention of misadventure at the time of the procedure; Z85.3 Personal history of malignant neoplasm of breast; Z95.5 Presence of coronary angioplasty implant and graft; Z87.891 Personal history of nicotine dependence

== ENCOUNTER 2018-07-05 09:30 | Outpatient (CLI) | payer MEDICARE, MEDICAID | END 2018-07-05 09:31 | disposition home or self-care (01) | LOC: RAD 09:30 ==

== ENCOUNTER 2018-07-09 09:58 | Outpatient (CLI) | payer MEDICARE, MEDICAID | END 2018-07-09 09:59 | disposition home or self-care (01) | LOC: RAD 09:58 ==

== ENCOUNTER 2018-09-04 10:05 | Outpatient (CLI) | payer MEDICARE, MEDICAID | END 2018-09-04 10:06 | disposition home or self-care (01) | LOC: RAD 10:05 ==